=== PATIENT | female | born 1935 | race Caucasian/White ===

== ENCOUNTER 2016-09-16 14:20 | Emergency (ER) | payer OTHER ==
[2016-09-16] MEDS ORDERED: NORMAL SALINE 10 ML SYRINGE FLUSH IVP PRN (14:32)
[2016-09-16] MEDS ORDERED: Sodium Chloride 0.9% 1,000 ML PRIMARY IV ONE (14:32)
--- NOTE | 2016-09-16 14:40 | PDOC ---
General Adult HPI - General Chief Complaint: General Medical Stated Complaint: Dizzy Date Seen by Provider: 09/16/16 Time Seen by Provider: 14:30 Source: POSITIVE: Patient Exam Limitations: POSITIVE: No limitations Nurse's Notes Reviewed & Considered: Yes - History of Present Illness Initial Comment: The patient is an 81-year-old female who presents to the emergency department with dizziness. She just recently moved to the area from [place]. She states that normally in the morning she feels somewhat lightheaded especially when first standing. This morning she had similar symptoms however they have not resolved throughout the day. She states that she has continued what she describes as dizziness. When questioned further she states that she feels weak and lightheaded and has some ringing in her ears. She denies vertigo type symptoms. She denies any associated headache, chest pain, recent illness, numbness or weakness in her extremities. She denies any recent illness. Have you received a tetanus shot in the past 10 years?: Unknown - Patient Home Medications Home Medications: Home Medications Amlodipine Besylate [Norvasc] 5 mg PO DAILY 09/16/16 Escitalopram Oxalate [Lexapro] 10 mg PO DAILY 09/16/16 Lisinopril [Prinivil Tab] 10 mg PO DAILY 09/16/16 Metoprolol Succinate 25 mg PO BID 09/16/16 - Patient Allergies Allergies/Adverse Reactions: Allergies Allergy/AdvReac Type Severity Reaction Status Date / Time No Known Allergies Allergy Verified 09/16/16 14:30 Past Medical History Past Medical History Reviewed: Other (please comment) (The patient reports taking blood pressure medications as well as medications for depression and anxiety. She denies any known history of heart disease.) ROS - Limitations ROS Limitations: No Limitations Constitution: DENIES: Chills, Fever Cardiovascular: DENIES: Chest Pain, Heart Racing, Heart Palpitations, Edema Respiratory: REPORTS: Denies Resp Symptoms Neurological: REPORTS: Dizziness. DENIES: Confusion, Headache, Numbness, Fainting, Weakness Gastrointestinal: REPORTS: Denies GI Symptoms Musculoskeletal: REPORTS: Denies MS Symptoms Genitourinary: REPORTS: Denies Symptoms, Other (She does report urinating frequently). DENIES: Dysuria, Difficulty Urinating Eyes: REPORTS: Denies Symptoms ENT: REPORTS: Denies Symptoms Skin: DENIES: Rash General Adult Exam - General Appearance General Appearance: POSITIVE: Alert, Cooperative, No Acute Distress - HEENT HEENT: POSITIVE: Head Inspection Nml, Eyes Inspection Nml, Pharynx Inspect. Nml , PERRL, EOMI, Foreign Body Present - Neck Neck: POSITIVE: Normal Inspection - Respiratory Respiratory: POSITIVE: No Respiratory Distress, Breath Sounds Normal - Cardiovascular Cardiovascular: POSITIVE: Regular Rate & Rhythm, No Murmur Peripheral Pulses: Dorsalis-pedis (R): 2+, Dorsalis-pedis (L): 2+ - Abdomen Abdomen: Soft: (All Quadrants), Denies Tenderness: (All Quadrants), No Distention: (All Quadrants) - Back Back: POSITIVE: Normal Inspection - Skin Skin: POSITIVE: Normal Color, No Rash, Rash - Extremities Extremity: Normal ROM: (All Extremities), Normal Inspection: (All Extremities) - Neurological / Psychological Neurological: POSITIVE: Oriented X3, Motor Normal, Sensation Normal, Other (No focal neurologic deficit) General Adult Progress - Results Reviewed by me Lab Results Reviewed: Yes Lab Results:: Laboratory Results 09/16/16 09/16/16 09/16/16 Range/Units 14:44 14:47 16:05 WBC 6.20 (4.8-10.8) 10^3/uL RBC 4.40 (4.20-5.40) 10^6/uL Hgb 13.0 (12.0-16.0) g/dL Hct 37.8 (37.0-47.0) % MCV 85.9 (81-99) FL MCH 29.5 (27-31) PG MCHC 34.4 (33-37) g/dL RDW Std Deviation 40.4 (39-50) fL RDW Coeff of Catina 13.0 (11.5-14.5) % Plt Count 274 (140-350) 10*3/uL MPV 8.4 (7.4-12.2) FL Immature Gran % (Auto) 0.2 (0-5) % Neut % (Auto) 58.2 (50-80) % Lymph % (Auto) 30.6 (10-50) % [place] % (Auto) 9.0 (5-15) % Eos % (Auto) 1.5 (0-8) % Baso % (Auto) 0.5 (0-1) % Immature Gran # (Auto) 0.01 10*3/UL Neut # (Auto) 3.61 10*3/UL Lymph # (Auto) 1.90 10*3/uL [place] # (Auto) 0.56 (0.3-0.8) 10*3/UL Eos # (Auto) 0.09 10*3/UL Baso # (Auto) 0.03 10*3/UL WBC Morphology Comment Normal morphology (NORM) Plt Morphology Comment Normal morphology (NORM) RBC Morph Comment Normal morphology (NORM) Sodium 139 (135-145) meq/L Potassium 3.7 L (3.8-5.2) meq/L Chloride 103 (98-112) meq/L Carbon Dioxide 23 (23-33) meq/L Anion Gap 13 (5-20) BUN 29 H (7-22) mg/dL Creatinine 1.3 H (0.50-1.20) mg/dL Estimated GFR [employer] BUN/Creatinine Ratio 22.30 H (6-20) Glucose 131 H (78-110) mg/dL Calculated Osmolality 295.0 H (267-292) mOsm/kg Calcium 9.7 (8.7-10.7) mg/dL Magnesium 1.6 (1.6-2.4) mg/dL Total Bilirubin 0.6 (0.3-1.2) mg/dL AST 24 (8-39) IU/L ALT 29 (9-52) IU/L Alkaline Phosphatase 101 (38-126) IU/L Troponin I < 0.012 (< 0.040) ng/mL Total Protein 7.3 (6.1-8.0) g/dL Albumin 4.5 (3.5-4.8) g/dL Globulin 2.8 (2.50-4.10) g/dL Albumin/Globulin Ratio 1.60 (1.3-2.0) mg/g Ur Collection Type Cancelled Clean catch urine Urine Color Cancelled Yellow Urine Clarity Cancelled Clear Urine pH Cancelled 5.0 Ur Specific [place] Cancelled 1.010 Urine Protein Cancelled Negative Urine Glucose (UA) Cancelled Negative Urine Ketones Cancelled Negative Urine Occult Blood Cancelled Negative Urine Nitrate Cancelled Negative Urine Bilirubin Cancelled Negative Urine Urobilinogen Cancelled 0.2 Ur Leukocyte Esterase Cancelled Trace Urine RBC Cancelled 0 Urine WBC Cancelled 1-3 Ur Squamous Epith Cells Cancelled Few Ur Renal Epithelial Cell Cancelled Rare Urine Crystals Cancelled None Urine Bacteria Cancelled Few Urine Casts Cancelled None Urine Mucus Cancelled Rare Urine Trichomonas Cancelled None Urine Yeast Cancelled None Ur Culture Indicated? Cancelled Culture not set EKG Interpreted/Reviewed By Me:: Yes EKG Interpretation:: POSITIVE: Other (Normal sinus rhythm, left bundle branch block, no old EKGs available for comparison) - Patient's Progress MDM / ED Course: Shortly after arrival an IV was established and she did receive 1 L bolus of normal saline. She was not orthostatic on check. Her blood work is essentially unremarkable except for a slightly elevated BUN/creatinine. We do not have baseline lab work on her. Her EKG shows a left bundle branch block and we don't have any old EKGs available for comparison. Her troponin is normal. At this point the etiology of her dizziness is unclear however may be secondary to some mild dehydration in combination with taking her blood pressure medications anxiety from her recent move. She is advised to rest and push fluids. She will return to the emergency room if any worsening or change in symptoms. She has an appointment with Dr. Yoon to establish primary care tomorrow. - Consult Counseled: POSITIVE: Patient, Family, RE: Lab Results, RE: DX, RE: Need for F/U Patient Care Time - Estimated PCT Patient Care Time (In Minutes): 35 Vital Signs - Recent Vital Signs Vital Signs: Vital Signs (Last 8 hours) Temp Pulse Pulse Pulse Pulse Resp BP 09/16/16 14:34 85 80 88 09/16/16 14:22 98.5 F 90 18 152/71 BP BP BP Pulse Ox 09/16/16 14:34 143/61 142/76 143/73 09/16/16 14:22 95 - VS Reviewed Vital Signs Reviewed: Yes Discharge Clinical Impression: Dehydration, Dizziness Condition: Stable Patient Instructions Given at Discharge: Dehydration (ED), Dizziness (ED) Additional Instructions: The blood work did not reveal any sign of infection or heart attack. The dizziness that you are experiencing is possibly related to some component of dehydration which is reflected in your blood work combined with your blood pressure medication and some component of anxiety. Rest and push fluids. Return to the emergency room if any worsening or change in symptoms. Keep your appointment with Dr. Yoon tomorrow. Follow Up With: ROBBIE YOON [Primary Care Provider] -
--- NOTE | 2016-09-16 14:45 | EKG ---
[address] [address] Measurements Intervals [place] Rate: 78 P: 33 AK: 172 QRS: -6 QRSD: 138 T: 100 QT: 398 QTc: 431 Interpretive Statements SINUS RHYTHM WITH OCCASIONAL SUPRAVENTRICULAR PREMATURE COMPLEXES LEFT BUNDLE BRANCH BLOCK No previous ECG available for comparison Electronically Signed On 09-16-16 15:36:48 MST by Jamie Bustamante [email or web address]
[2016-09-16 14:48] LABS: BASOPHILS # (AUTO) 0.03 10*3/UL; BASOPHILS % (AUTO) 0.5 % (0-1); EOSINOPHILS % (AUTO) 1.5 % (0-8); HEMATOCRIT 37.8 % (37.0-47.0); IMM GRAN % (AUTO) 0.2 % (0-5); IMM GRAN# (AUTO) 0.01 10*3/UL; LYMPHOCYTES % (AUTO) 30.6 % (10-50); MEAN CORPUSCULAR HEMOGLOBIN 29.5 PG (27-31); MEAN CORPUSCULAR HGB CONC 34.4 g/dL (33-37); MEAN PLATELET VOLUME 8.4 FL (7.4-12.2); MONOCYTES # (AUTO) 0.56 10*3/UL (0.3-0.8); NEUTROPHILS # (AUTO) 3.61 10*3/UL; NEUTROPHILS % (AUTO) 58.2 % (50-80)
[2016-09-16 14:49] LABS: PLATELET MORPHOLOGY COMMENT NORMAL MORPHOLOGY (NORM)
[2016-09-16 14:55] LABS: ASPARTATE AMINO TRANSFERASE 24 IU/L (8-39); BILIRUBIN,TOTAL 0.6 mg/dL (0.3-1.2); BLOOD UREA NITROGEN 29 mg/dL (7-22); CALCIUM 9.7 mg/dL (8.7-10.7); CHLORIDE 103 meq/L (98-112); CREATININE 1.3 mg/dL (0.50-1.20); GLUCOSE 131 mg/dL (78-110); POTASSIUM 3.7 meq/L (3.8-5.2); SODIUM 139 meq/L (135-145); TOTAL PROTEIN 7.3 g/dL (6.1-8.0)
[2016-09-16 16:01] VITALS: RESP 18; TEMP 98.5
[2016-09-16 16:15] LABS: BILIRUBIN,URINE NEGATIVE (NEG); CLARITY,URINE CLEAR (CLEAR); GLUCOSE, URINE (UA) NEGATIVE (NEG); LEUKOCYTE ESTERASE ,URINE TRACE (NEG); NITRATE,URINE NEGATIVE (NEG); OCCULT BLOOD,URINE NEGATIVE (NEG); PROTEIN,URINE NEGATIVE (NEG); UROBILINOGEN,URINE 0.2 EU/dL (0.2)
[2016-09-16 16:16] LABS: URINE SAMPLE TYPE CLEAN CATCH URINE
[2016-09-16 16:18] LABS: BACTERIA,URINE FEW; RBC,URINE 0 /hpf; RENAL EPITHELIAL CELLS,URINE RARE; SQUAMOUS EPITHELIAL CELL,UR FEW
== END 2016-09-16 17:05 | disposition home or self-care (01) ==
LOC: ER 14:20
DX: E86.0 Dehydration (principal); R53.1 Weakness; R42 Dizziness and giddiness; R35.0 Frequency of micturition; I10 Essential (primary) hypertension
CPT/HCPCS: 80053; 81001; 81003; 82948; 83735; 84484; 85025; 93005; 93010; 96360; 96361; 99283

== ENCOUNTER → 2016-09-17 | Outpatient (CLI) | payer OTHER | LOC: MMPC 11:11 | PROVIDERS: ATTEND Internal Medicine | DX: I10 Essential (primary) hypertension (principal); E86.0 Dehydration; F41.8 Other specified anxiety disorders; N18.2 Chronic kidney disease, stage 2 (mild); J44.9 Chronic obstructive pulmonary disease, unspecified | CPT/HCPCS: 99214; G0463 ==

== ENCOUNTER 2016-09-19 15:16 | Emergency (ER) | payer OTHER ==
--- NOTE | 2016-09-19 15:39 | PDOC ---
Gen Adult / Medical Screen HPI - General Chief Complaint: General Medical Stated Complaint: I can't stop crying Date Seen by Provider: 09/19/16 Time Seen by Provider: 15:39 Source: POSITIVE: Patient, Other (Patient's daughter and son-in-law) Exam Limitations: POSITIVE: Clinical condition (Patient's confusion and underlying dementia) Nurse's Notes Reviewed & Considered: Yes - Indicators Temperature Between 95 and 101 Degrees: Yes Respirations Between 12 and 20: Yes Blood Pressure Between 100-165 (sys) and 60-100 (wade): Yes Pulse Range Between 60-105 (100 for age > 60 years): Yes Severe Pain (Greater than 5/10 Reported): No Chest or Abdominal Pain: No Inability to Walk: No Pt Reports Active High Risk Cond. (TB/Hepatitis/HIV/Chemo): No Abnormal Mental Status: Yes (patient is alert and oriented to person, unsure of whether she is in [facility]) - History of Present Illness Initial Comments: Patient comes in tearful. She is brought in by her family because of crying stating she has been unable stop crying. She was seen here in the emergency department last week for the same. Patient is confused unsure if she is in [place] or [place]. She is alert only to person not place or time. She denies any headache, sore throat, chest pain, no shortness of breath, no abdominal pain , no nausea vomiting or diarrhea, she has increased frequency of urination but no dysuria. Similar Symptoms Previously: Yes Recent Care Received: REPORTS: Recently Seen Any Prior Injuries Related to Current Complaint?: No - Patient Home Medications Home Medications: Home Medications Escitalopram Oxalate 0.5 tab-cap PO DAILY #30 tab-cap 09/17/16 Hydralazine HCl 1 tab-cap PO BID #60 tab-cap 09/17/16 Metoprolol Succinate 1 tab PO QHS #30 tab 09/17/16 - Patient Allergies Allergies/Adverse Reactions: Allergies Allergy/AdvReac Type Severity Reaction Status Date / Time No Known Allergies Allergy Verified 09/19/16 15:19 Past Medical History - heen HEENT History: Denies History Cardiovascular History: Hypertension, Hyperlipidemia Respiratory History: Denies History Gastrointestinal History: Denies History Genitourinary History: Denies History Endocrine History: Denies History Musculoskeletal History: Denies History Prosthesis or Implant: No Neurological History: Denies History Blood Disorders: Denies History Psychiatric History: Depression, Anxiety Disorders Cancer History: Denies History History of MDRO: No Alcohol Use: None Substance Use Type: None Previous Surgical History: No Anesthesia Reactions: No ROS - Limitations ROS Limitations: Mental Impairment Constitution: REPORTS: Denies Symptoms Cardiovascular: REPORTS: Denies Cardiac Symptoms Respiratory: REPORTS: Denies Resp Symptoms Neurological: REPORTS: Denies Neuro Symptoms Gastrointestinal: REPORTS: Denies GI Symptoms Endocrine: REPORTS: Denies Symptoms Musculoskeletal: REPORTS: Denies MS Symptoms Genitourinary: REPORTS: Denies Symptoms Eyes: REPORTS: Denies Symptoms ENT: REPORTS: Denies Symptoms Skin: REPORTS: Denies Skin Symptoms Lympathic: REPORTS: Denies Lympathic Symptoms Immunologic: POSITIVE: Denies Symptoms Psychiatric: POSITIVE: Confusion, Other (Tearful, can't stop crying.) Gen Adult/Medical Screen Exam - General Appearance General Appearance: POSITIVE: Cooperative, No Evidence of Trauma, Anxious, Mild Distress - HEENT HEENT: POSITIVE: Head Inspection Nml, Eyes Inspection Nml, Ears Inspection Nml, Nose Inspection Nml, Oral/Dental Inspect. Nml, Pharynx Inspect. Nml, PERRL, EOMI - Pupils Pupil Size: 4 mm: Bilateral - Neck Neck: POSITIVE: Normal Inspection, Thyroid Normal - Respiratory Respiratory: POSITIVE: No Respiratory Distress, Breath Sounds Normal - Cardiovascular Cardiovascular: POSITIVE: Regular Rate & Rhythm, No Murmur, No Gallop, PMI Normal - Abdomen Abdomen: Soft: (All Quadrants), Normal Bowel Sounds: (All Quadrants), Denies Tenderness: (All Quadrants) - Back Back: POSITIVE: Normal Inspection - Neurological / Psychological Mental Status: POSITIVE: Depressed Mood, Tearful Orientation: POSITIVE: Disoriented to Place, Disoriented to Time - Skin Skin: POSITIVE: Normal Color, Warm, Dry, No Rash - Extremities Extremity: Non-Tender: (All Extremities), Normal ROM: (All Extremities), Normal Inspection: (All Extremities) Procedures - Laceration/Wound Repair Did patient have a laceration repair: No Gen Adlt/Medical Scrn Progress - Results Reviewed by me Xrays/CTs/US Reviewed by me: Yes Discussed with Radiologist: Yes Lab Results Reviewed: Yes Lab Results:: Laboratory Results 09/19/16 09/19/16 Range/Units 15:59 16:10 WBC 6.77 (4.8-10.8) 10^3/uL RBC 3.88 L (4.20-5.40) 10^6/uL Hgb 11.5 L (12.0-16.0) g/dL Hct 33.5 L (37.0-47.0) % MCV 86.3 (81-99) FL MCH 29.6 (27-31) PG MCHC 34.3 (33-37) g/dL RDW Std Deviation 41.1 (39-50) fL RDW Coeff of Catina 13.1 (11.5-14.5) % Plt Count 279 (140-350) 10*3/uL MPV 8.6 (7.4-12.2) FL Immature Gran % (Auto) 0.1 (0-5) % Neut % (Auto) 61.3 (50-80) % Lymph % (Auto) 25.3 (10-50) % [place] % (Auto) 10.8 (5-15) % Eos % (Auto) 2.1 (0-8) % Baso % (Auto) 0.4 (0-1) % Immature Gran # (Auto) 0.01 10*3/UL Neut # (Auto) 4.15 10*3/UL Lymph # (Auto) 1.71 10*3/uL [place] # (Auto) 0.73 (0.3-0.8) 10*3/UL Eos # (Auto) 0.14 10*3/UL Baso # (Auto) 0.03 10*3/UL WBC Morphology Comment Normal morphology (NORM) Plt Morphology Comment Normal morphology (NORM) RBC Morph Comment Normal morphology (NORM) Sodium 139 (135-145) meq/L Potassium 3.5 L (3.8-5.2) meq/L Chloride 104 (98-112) meq/L Carbon Dioxide 22 L (23-33) meq/L Anion Gap 13 (5-20) BUN 27 H (7-22) mg/dL Creatinine 1.4 H (0.50-1.20) mg/dL Estimated GFR [employer] Tender BUN/Creatinine Ratio 19.28 (6-20) Glucose 117 H (78-110) mg/dL Calculated Osmolality 293.0 H (267-292) mOsm/kg Calcium 9.1 (8.7-10.7) mg/dL Magnesium 1.5 L (1.6-2.4) mg/dL Total Bilirubin 0.5 (0.3-1.2) mg/dL AST 25 (8-39) IU/L ALT 21 (9-52) IU/L Alkaline Phosphatase 87 (38-126) IU/L Total Protein 6.7 (6.1-8.0) g/dL Albumin 4.1 (3.5-4.8) g/dL Globulin 2.6 (2.50-4.10) g/dL Albumin/Globulin Ratio 1.50 (1.3-2.0) mg/g TSH 2.50 (0.2700-4.2000) uIU/mL Free T4 1.77 H (0.93-1.71) ng/dL Ur Collection Type Clean catch urine Urine Color Yellow Urine Clarity Clear (CLEAR) Urine pH 5.0 (5.0-8.5) Ur Specific [place] 1.010 (1.005-1.030) U Specif Grav (Refrac) 1.010 Urine Protein Negative (NEG) mg/dl Urine Glucose (UA) Negative (NEG) mg/dL Urine Ketones Trace (NEG) Urine Occult Blood Negative (NEG) Urine Nitrate Negative (NEG) Urine Bilirubin Negative (NEG) Urine Urobilinogen 0.2 (0.2) EU/dL Ur Leukocyte Esterase Small (NEG) Urine RBC None (NONE) /hpf Urine WBC 5-8 (NONE) Ur Squamous Epith Cells Moderate (NONE) Ur Renal Epithelial Cell None (NONE) Urine Crystals None Urine Bacteria Rare (NONE) Urine Casts None (NONE) Urine Mucus Moderate (NONE) Urine Trichomonas None (NONE) Urine Yeast None (NONE) Ur Culture Indicated? Culture not set Urine Opiates Screen Pending Ur Buprenorphine Pending Ur Oxycodone Screen Pending Urine Methadone Screen Pending Ur Propoxyphene Screen Pending Barbiturate Screen Pending U Tricyclic Antidepress Pending Phencyclidine Screen Pending Amphetamines Screen Pending U Methamphetamines Scrn Pending Benzodiazepines Screen Pending Cocaine Screen Pending U Marijuana (THC) Screen Pending Serum Alcohol 10 (0-10) mg/dL EKG Interpretation:: POSITIVE: Normal Sinus Rhythm - Patient's Progress Pain Medication Addressed: POSITIVE: Not Applicable Re-Examine Time: 18:19 Status: POSITIVE: Improved MDM / ED Course: Patient was examined, IV started and blood drawn and sent to the lab for studies , CT of her head was obtained, EKG was obtained. Findings: EKG showed normal sinus rhythm per my interpretation, CT scan of her head showed no acute intracranial abnormalities. CBC shows a slight anemia. Comp metabolic panel shows creatinine elevated at 1.4, potassium slightly low at 3.5. Magnesium slightly low at 1.5. Thyroid panel showed TSH normal but T4 elevated at 1.77. Urine Analysis reveals a contaminated pattern, urine drug screen negative. Blood alcohol register 10. Assessment: Dementia with depression. Plan: Discharge home. Follow-up with primary care physician. Consider placement for longterm. 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
[2016-09-19] MEDS ORDERED: LORazepam 2 MG/1 ML VIAL IVP ONE (15:59)
[2016-09-19] MEDS ORDERED: Sodium Chloride 0.9% 1,000 ML PRIMARY IV ONE (15:59)
[2016-09-19 16:30] LABS: BASOPHILS # (AUTO) 0.03 10*3/UL; BASOPHILS % (AUTO) 0.4 % (0-1); EOSINOPHILS % (AUTO) 2.1 % (0-8); HEMATOCRIT 33.5 % (37.0-47.0); HEMOGLOBIN 11.5 g/dL (12.0-16.0); IMM GRAN % (AUTO) 0.1 % (0-5); IMM GRAN# (AUTO) 0.01 10*3/UL; LYMPHOCYTES # (AUTO) 1.71 10*3/uL; LYMPHOCYTES % (AUTO) 25.3 % (10-50); MEAN CORPUSCULAR HEMOGLOBIN 29.6 PG (27-31); MEAN CORPUSCULAR HGB CONC 34.3 g/dL (33-37); MEAN PLATELET VOLUME 8.6 FL (7.4-12.2); MONOCYTES # (AUTO) 0.73 10*3/UL (0.3-0.8); MONOCYTES % (AUTO) 10.8 % (5-15); NEUTROPHILS # (AUTO) 4.15 10*3/UL; NEUTROPHILS % (AUTO) 61.3 % (50-80); RDW COEFFICIENT OF VARIATION 13.1 % (11.5-14.5); RED BLOOD COUNT 3.88 10^6/uL (4.20-5.40); WHITE BLOOD COUNT 6.77 10^3/uL (4.8-10.8)
[2016-09-19 16:31] LABS: PLATELET MORPHOLOGY COMMENT NORMAL MORPHOLOGY (NORM)
[2016-09-19 16:36] VITALS: RESP 12; TEMP 97.2
[2016-09-19 16:43] LABS: ASPARTATE AMINO TRANSFERASE 25 IU/L (8-39); BILIRUBIN,TOTAL 0.5 mg/dL (0.3-1.2); BLOOD UREA NITROGEN 27 mg/dL (7-22); BUN/CREATININE RATIO 19.28 (6-20); CALCIUM 9.1 mg/dL (8.7-10.7); CHLORIDE 104 meq/L (98-112); CREATININE 1.4 mg/dL (0.50-1.20); GLUCOSE 117 mg/dL (78-110); MAGNESIUM 1.5 mg/dL (1.6-2.4); POTASSIUM 3.5 meq/L (3.8-5.2); SERUM ALCOHOL 10 mg/dL (0-10); SODIUM 139 meq/L (135-145); TOTAL PROTEIN 6.7 g/dL (6.1-8.0)
[2016-09-19 17:00] LABS: FREE T4 (FREE THYROXINE) 1.77 ng/dL (0.93-1.71)
[2016-09-19 17:50] LABS: BILIRUBIN,URINE NEGATIVE (NEG); CLARITY,URINE CLEAR (CLEAR); GLUCOSE, URINE (UA) NEGATIVE (NEG); LEUKOCYTE ESTERASE ,URINE SMALL (NEG); NITRATE,URINE NEGATIVE (NEG); OCCULT BLOOD,URINE NEGATIVE (NEG); PROTEIN,URINE NEGATIVE (NEG); UROBILINOGEN,URINE 0.2 EU/dL (0.2)
[2016-09-19 18:03] LABS: BACTERIA,URINE RARE; SQUAMOUS EPITHELIAL CELL,UR MODERATE; URINE SAMPLE TYPE CLEAN CATCH URINE
--- NOTE | 2016-09-19 18:55 | DI ---
CT HEAD SCAN WITHOUT IV CONTRAST, 09/19/2016 3:59 PM : Clinical History: Confusion. Previous Exam: None at this facility. Scans are obtained from the foramen magnum to the vertex without IV contrast. The fourth ventricle is of normal size, shape, position and contour. The third and lateral ventricles are mildly dilated but are otherwise normal. There is no evidence of an acute hemorrhagic or bland i nfarct. There is moderate cerebellar and moderately severe cerebral atrophy. There are no extracerebr al mantles or shift of the midline structures. Bone window evaluation is normal. The paranasal sinuse s are normal. READIN. There is no evidence of an acute hemorrhagic or bland infarct. 2. Moderate cerebellar and moderately severe cerebral atrophy.
[2016-09-22 21:29] LABS: CANNABINOID SCREEN,URINE NEGATIVE (NEG); COCAINE SCREEN NEGATIVE (NEG); METHAMPHETAMINES SCREEN,URINE NEGATIVE (NEG)
== END 2016-09-19 18:35 | disposition home or self-care (01) ==
LOC: ER 15:16
DX: F32.89 Other specified depressive episodes (principal); F03.90 Unspecified dementia, unspecified severity, without behavioral disturbance, psychotic disturbance, mood disturbance, and anxiety; G31.9 Degenerative disease of nervous system, unspecified
CPT/HCPCS: 70450; 80053; 80305; 80320; 81001; 81003; 83735; 84439; 84443; 85025; 96374; 99283; J2060; J7030

== ENCOUNTER 2016-09-20 12:54 | Emergency (ER) | payer OTHER ==
[2016-09-20 13:12] VITALS: RESP 12; TEMP 96.8
[2016-09-20] MEDS ORDERED: NORMAL SALINE 10 ML SYRINGE FLUSH IVP PRN (13:14)
[2016-09-20] MEDS ORDERED: Sodium Chloride 0.9% 1,000 ML PRIMARY IV ONE (13:14)
[2016-09-20] MEDS ORDERED: ONDANSETRON 4 MG/2 ML VIAL IVP ONE (13:16)
--- NOTE | 2016-09-20 13:26 | EKG ---
[address] [place] [address] Measurements Intervals [place] Rate: 59 P: 36 [place]: 169 QRS: -13 QRSD: 132 T: 91 QT: 445 QTc: 444 Interpretive Statements SINUS BRADYCARDIA LEFT BUNDLE BRANCH BLOCK Compared to ECG 09/16/2016 14:42:36 Sinus rhythm no longer present Electronically Signed On 09-20-16 15:21:42 MST by Jamie Bustamante [id number]
[2016-09-20 13:40] LABS: BASOPHILS # (AUTO) 0.04 10*3/UL; BASOPHILS % (AUTO) 0.6 % (0-1); EOSINOPHILS % (AUTO) 1.4 % (0-8); HEMATOCRIT 34.5 % (37.0-47.0); HEMOGLOBIN 11.9 g/dL (12.0-16.0); IMM GRAN % (AUTO) 0.2 % (0-5); IMM GRAN# (AUTO) 0.01 10*3/UL; LYMPHOCYTES # (AUTO) 1.65 10*3/uL; LYMPHOCYTES % (AUTO) 25.5 % (10-50); MEAN CORPUSCULAR HEMOGLOBIN 29.8 PG (27-31); MEAN CORPUSCULAR HGB CONC 34.5 g/dL (33-37); MEAN PLATELET VOLUME 8.4 FL (7.4-12.2); MONOCYTES % (AUTO) 10.8 % (5-15); NEUTROPHILS # (AUTO) 3.99 10*3/UL; NEUTROPHILS % (AUTO) 61.5 % (50-80); RDW COEFFICIENT OF VARIATION 13.2 % (11.5-14.5); RED BLOOD COUNT 3.99 10^6/uL (4.20-5.40); WHITE BLOOD COUNT 6.48 10^3/uL (4.8-10.8)
[2016-09-20 13:43] LABS: PLATELET MORPHOLOGY COMMENT NORMAL MORPHOLOGY (NORM)
[2016-09-20 13:55] LABS: ASPARTATE AMINO TRANSFERASE 20 IU/L (8-39); BILIRUBIN,TOTAL 0.5 mg/dL (0.3-1.2); BLOOD UREA NITROGEN 25 mg/dL (7-22); BUN/CREATININE RATIO 19.23 (6-20); CALCIUM 9.3 mg/dL (8.7-10.7); CHLORIDE 104 meq/L (98-112); CREATININE 1.3 mg/dL (0.50-1.20); GLUCOSE 111 mg/dL (78-110); POTASSIUM 3.7 meq/L (3.8-5.2); SODIUM 138 meq/L (135-145); TOTAL PROTEIN 6.4 g/dL (6.1-8.0)
--- NOTE | 2016-09-21 06:08 | PDOC ---
General Adult HPI - General Chief Complaint: Syncope / Near-Syncope Stated Complaint: dizzy, nauseated Date Seen by Provider: 09/20/16 Time Seen by Provider: 13:05 Source: POSITIVE: Patient, Old records Exam Limitations: POSITIVE: No limitations Nurse's Notes Reviewed & Considered: Yes - History of Present Illness Initial Comment: The patient is an 81-year-old female. She states that for the past day, approximately, she has felt nauseated and "weak". No head chest or abdominal pain. No syncope or near-syncope. No vomiting, diarrhea, melena, hematochezia , hematemesis, dysuria or hematuria. No focal neurologic symptoms. No sensory or motor symptoms. Have you received a tetanus shot in the past 10 years?: Unknown Body Location Affected: REPORTS: Other (As above) Timing: REPORTS: Intermittent Duration: <1 week Severity: Mild Quality: REPORTS: Other (Patient denies any pain anywhere) Context: REPORTS: None Modifying Factors: improves with: Nothing Similar Symptoms Previously: Yes Recent Care Received: REPORTS: Recently Seen, Treated by MD (Seen in ER for similar symptoms recently.) Any Prior Injuries Related to Current Complaint?: No - Patient Home Medications Home Medications: Home Medications Escitalopram Oxalate 0.5 tab-cap PO DAILY #30 tab-cap 09/17/16 Hydralazine HCl 1 tab-cap PO BID #60 tab-cap 09/17/16 Metoprolol Succinate 1 tab PO QHS #30 tab 09/17/16 - Patient Allergies Allergies/Adverse Reactions: Allergies Allergy/AdvReac Type Severity Reaction Status Date / Time No Known Allergies Allergy Verified 09/19/16 15:19 Past Medical History - heen HEENT History: Denies History Cardiovascular History: Hypertension, Hyperlipidemia Respiratory History: Denies History Gastrointestinal History: Denies History Genitourinary History: Denies History Endocrine History: Denies History Musculoskeletal History: Denies History Prosthesis or Implant: No Neurological History: Denies History Blood Disorders: Denies History Psychiatric History: Depression, Anxiety Disorders History of Sexually Transmitted Diseases: No Cancer History: Denies History In Past Year Been Physically Harmed or Verbally Threatened: No History of MDRO: No History of Other Communicable Diseases: No Tobacco Use: Former Smoker Alcohol Use: None Substance Use Type: None Previous Surgical History: No Anesthesia Reactions: No Past Medical History Reviewed: Reviewed - No Changes ROS - Limitations ROS Limitations: No Limitations Constitution: REPORTS: Weakness Cardiovascular: REPORTS: Denies Cardiac Symptoms Respiratory: REPORTS: Denies Resp Symptoms Neurological: REPORTS: Denies Neuro Symptoms Gastrointestinal: REPORTS: Denies GI Symptoms Endocrine: REPORTS: Denies Symptoms Musculoskeletal: REPORTS: Denies MS Symptoms Genitourinary: REPORTS: Denies Symptoms Eyes: REPORTS: Denies Symptoms ENT: REPORTS: Denies Symptoms Skin: REPORTS: Denies Skin Symptoms Lympathic: REPORTS: Denies Lympathic Symptoms Immunologic: POSITIVE: Denies Symptoms Psychiatric: POSITIVE: Anxiety General Adult Exam - General Appearance General Appearance: POSITIVE: Alert - HEENT HEENT: POSITIVE: Head Inspection Nml, Eyes Inspection Nml, Ears Inspection Nml, Nose Inspection Nml, Oral/Dental Inspect. Nml, Pharynx Inspect. Nml, PERRL, EOMI - Pupils Pupil Size: 3 mm: Bilateral (PERRLA) - Neck Neck: POSITIVE: Normal Inspection, Thyroid Normal - Respiratory Respiratory: POSITIVE: No Respiratory Distress, Breath Sounds Normal, Chest Non- Tender - Cardiovascular Cardiovascular: POSITIVE: Regular Rate & Rhythm, No Murmur, No Gallop, PMI Normal Peripheral Pulses: Radial (R): 2+, Radial (L): 2+ - Abdomen Abdomen: Soft: (All Quadrants), Normal Bowel Sounds: (All Quadrants), Denies Tenderness: (All Quadrants), No Splenomegaly: (All Quadrants), No Hepatomegaly: (All Quadrants), No Guarding: (All Quadrants), No Rebound: (All Quadrants), No Palpable Pulse: (All Quadrants), No Palpabale Mass: (All Quadrants), No Distention: (All Quadrants), No Rigidity: (All Quadrants) - Back Back: POSITIVE: Normal Inspection - Skin Skin: POSITIVE: Normal Color, Warm, Dry, No Rash - Extremities Extremity: Non-Tender: (All Extremities), Normal ROM: (All Extremities), Normal Inspection: (All Extremities) - Neurological / Psychological Neurological: 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: 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, 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, Motor Normal, Sensation Normal, 5, 6 General Adult Progress - Results Reviewed by me Lab Results Reviewed: Yes (normal) Lab Results:: Laboratory Results 09/20/16 Range/Units 13:30 WBC 6.48 (4.8-10.8) 10^3/uL RBC 3.99 L (4.20-5.40) 10^6/uL Hgb 11.9 L (12.0-16.0) g/dL Hct 34.5 L (37.0-47.0) % MCV 86.5 (81-99) FL MCH 29.8 (27-31) PG MCHC 34.5 (33-37) g/dL RDW Std Deviation 40.9 (39-50) fL RDW Coeff of Catina 13.2 (11.5-14.5) % Plt Count 286 (140-350) 10*3/uL MPV 8.4 (7.4-12.2) FL Immature Gran % (Auto) 0.2 (0-5) % Neut % (Auto) 61.5 (50-80) % Lymph % (Auto) 25.5 (10-50) % [place] % (Auto) 10.8 (5-15) % Eos % (Auto) 1.4 (0-8) % Baso % (Auto) 0.6 (0-1) % Immature Gran # (Auto) 0.01 10*3/UL Neut # (Auto) 3.99 10*3/UL Lymph # (Auto) 1.65 10*3/uL [place] # (Auto) 0.70 (0.3-0.8) 10*3/UL Eos # (Auto) 0.09 10*3/UL Baso # (Auto) 0.04 10*3/UL WBC Morphology Comment Normal morphology (NORM) Plt Morphology Comment Normal morphology (NORM) RBC Morph Comment Normal morphology (NORM) Sodium 138 (135-145) meq/L Potassium 3.7 L (3.8-5.2) meq/L Chloride 104 (98-112) meq/L Carbon Dioxide 22 L (23-33) meq/L Anion Gap 12 (5-20) BUN 25 H (7-22) mg/dL Creatinine 1.3 H (0.50-1.20) mg/dL 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 NEGATIVE: Normal Intervals (Left bundle-branch block), Normal [place] (Left bundle- branch block), Normal QRS (Left bundle-branch block), Normal ST/T (Left bundle- branch block) - Patient's Progress Pain Medication Addressed: POSITIVE: Not Applicable School/Work Release Addressed: POSITIVE: Not Applicable Re-Examine Time: 14:25 Re-Examine Comment: Patient given a liter of normal saline IV and 4 mg of Zofran IV. Nausea resolved on discharge and patient states she feels better and is asymptomatic. Status: POSITIVE: Improved, Re-Examined Antibiotics Given: No - Consult Counseled: POSITIVE: Patient, Family (Daughter) Patient Care Time - Estimated PCT Patient Care Time (In Minutes): 45 Vital Signs - VS Reviewed Vital Signs Reviewed: Yes Discharge Clinical Impression: Nausea, Fatigue Discharge Disposition: Discharged to Home Condition: Fair Patient Instructions Given at Discharge: Weakness (ED), Fatigue (ED) Additional Instructions: I am glad you are feeling better. I see no evidence of any serious problems ongoing. You might be in the early stages of dementia. Please follow-up with your primary care provider. Return here as necessary. Follow Up With: ROBBIE YOON [Primary Care Provider] - (Instructions as above. Follow-up with your primary care provider. Return if we may be of any further service.)
== END 2016-09-20 14:55 | disposition home or self-care (01) ==
LOC: ER 12:54
DX: R11.0 Nausea (principal); R53.1 Weakness; R53.83 Other fatigue
CPT/HCPCS: 80053; 84443; 84484; 85025; 93005; 93010; 96361; 96374; 99283; J2405; J7030

== ENCOUNTER 2016-09-29 23:14 | Inpatient (IN) | payer OTHER ==
[2016-09-29] MEDS ORDERED: Sodium Chloride 0.9% 1,000 ML PRIMARY IV ONE (23:24)
[2016-09-29] MEDS ORDERED: NORMAL SALINE 10 ML SYRINGE FLUSH IVP PRN (23:24)
[2016-09-29 23:31] LABS: BASOPHILS # (AUTO) 0.03 10*3/UL; BASOPHILS % (AUTO) 0.4 % (0-1); EOSINOPHILS # (AUTO) 0.15 10*3/UL; EOSINOPHILS % (AUTO) 1.8 % (0-8); HEMATOCRIT 38.3 % (37.0-47.0); HEMOGLOBIN 13.1 g/dL (12.0-16.0); LYMPHOCYTES # (AUTO) 3.02 10*3/uL; MEAN CORPUSCULAR HEMOGLOBIN 29.6 PG (27-31); MEAN CORPUSCULAR HGB CONC 34.2 g/dL (33-37); MEAN CORPUSCULAR VOLUME 86.5 FL (81-99); MEAN PLATELET VOLUME 8.7 FL (7.4-12.2); MONOCYTES # (AUTO) 0.84 10*3/UL (0.3-0.8); MONOCYTES % (AUTO) 10.3 % (5-15); NEUTROPHILS # (AUTO) 4.14 10*3/UL; NEUTROPHILS % (AUTO) 50.5 % (50-80); RED BLOOD COUNT 4.43 10^6/uL (4.20-5.40)
--- NOTE | 2016-09-29 23:32 | PDOC ---
Abdomen/Flank HPI - General Chief Complaint: Abdomen Pain Stated Complaint: ABD PAIN Date Seen by Provider: 09/29/16 Time Seen by Provider: 11:20 Source: POSITIVE: Patient Exam Limitations: POSITIVE: No limitations Nurse's Notes Reviewed & Considered: Yes - History of Present Illness Initial Comments: The patient is an 81-year-old female who presents to the emergency department with acute onset of abdominal pain. She states that she was getting ready for bed and laid down when she had onset of severe abdominal pain. She states that she felt like her intestines were knotted up. She subsequently got up and tried to go to the bathroom. She was able to urinate however did not feel any better. She had a difficult time getting off the toilet and eventually was able to wake up her family. They subsequently called EMS to bring the patient here to the emergency room. She did receive fentanyl and Zofran in route per EMS and her pain has subsided somewhat on arrival here. She states that her pain is worse with movement. She denies any increase shortness of breath. She did have some associated nausea. She states that she has not had similar pain in the past. She denies recent falls or illness. She denies urinary symptoms. She has been evaluated several times here in the emergency room over the past couple of weeks with vague complaints of dizziness and dehydration/ lightheadedness. She also established care with Dr. Dunbar. A couple of her blood pressure medications were discontinued. Her family does report over the past couple of days her blood pressure has been increasing. On arrival here in the emergency room her blood pressure was elevated at 200/115. She denies any recent falls. - Patient Home Medications Home Medications: Home Medications Escitalopram Oxalate 0.5 tab-cap PO DAILY #30 tab-cap 09/17/16 Hydralazine HCl 1 tab-cap PO BID #60 tab-cap 09/17/16 Metoprolol Succinate 1 tab PO QHS #30 tab 09/17/16 Lorazepam [Ativan] 0.5 tab PO QAM #3 tab 09/22/16 - Patient Allergies Allergies/Adverse Reactions: Allergies Allergy/AdvReac Type Severity Reaction Status Date / Time No Known Allergies Allergy Verified 09/29/16 23:29 Past Medical History - heen HEENT History: Denies History Cardiovascular History: Hypertension, Hyperlipidemia Respiratory History: Denies History Gastrointestinal History: Denies History Genitourinary History: Denies History Endocrine History: Denies History Musculoskeletal History: Denies History Prosthesis or Implant: No Neurological History: Denies History Blood Disorders: Denies History Psychiatric History: Depression, Anxiety Disorders History of Sexually Transmitted Diseases: No Cancer History: Denies History History of MDRO: No History of Other Communicable Diseases: No Alcohol Use: None Substance Use Type: None Previous Surgical History: No Anesthesia Reactions: No Past Medical History Reviewed: Reviewed - No Changes ROS - Limitations ROS Limitations: No Limitations Constitution: DENIES: Chills, Fever Cardiovascular: DENIES: Chest Pain, Heart Palpitations, Edema Respiratory: REPORTS: Denies Resp Symptoms. DENIES: Shortness Of Breath Neurological: REPORTS: Denies Neuro Symptoms Gastrointestinal: REPORTS: Abdominal Pain, Nausea. DENIES: Vomitting, Diarrhea Musculoskeletal: REPORTS: Denies MS Symptoms Genitourinary: REPORTS: Denies Symptoms Eyes: REPORTS: Denies Symptoms ENT: REPORTS: Denies Symptoms Skin: DENIES: Rash Abdominal/Flank Pain PE - General Appearance General Appearance: POSITIVE: Alert, Cooperative, No Acute Distress, Anxious - HEENT HEENT: POSITIVE: Head Inspection Nml, Eyes Inspection Nml, Ears Inspection Nml, Pharynx Inspect. Nml - Neck Neck: POSITIVE: Normal Inspection - Respiratory Respiratory: POSITIVE: No Respiratory Distress, Breath Sounds Normal - Cardiovascular Cardiovascular: POSITIVE: Regular Rate and Rhythm, Heart Sounds Normal - Abdomen Abdomen: Soft: (All Quadrants), Normal Bowel Sounds: (All Quadrants), No Distention: (All Quadrants) Additional Abdominal Details: Her abdomen is soft however she is tender in the epigastric and right upper quadrants without guarding or rebound tenderness. - Back Back: NEGATIVE: CVA Tenderness (R), CVA Tenderness (L) - Skin Skin: POSITIVE: Intact, No Rash - Extremities Extremity: Normal ROM: (All Extremities), Normal Inspection: (All Extremities) - Neurological Neurological: POSITIVE: Oriented X3, Motor Normal, Sensation Normal Abdomen Progress - Results Reviewed by me Xrays/CTs/US Reviewed by me: Yes Discussed with Radiologist: Yes Radiology Findings: CT scan of the abdomen and pelvis done without IV contrast secondary to chronic renal failure shows evidence of cholelithiasis with concern about thickened gallbladder wall consistent with cholecystitis per radiologist. She also had some thickening of the distal esophagus noted on CT. No other acute abnormalities. Lab Results Reviewed: Yes Lab Results:: Laboratory Results 03/13/17 Range/Units 23:15 WBC 8.19 (4.8-10.8) 10^3/uL RBC 4.43 (4.20-5.40) 10^6/uL Hgb 13.1 (12.0-16.0) g/dL Hct 38.3 (37.0-47.0) % MCV 86.5 (81-99) FL MCH 29.6 (27-31) PG MCHC 34.2 (33-37) g/dL RDW Std Deviation 41.3 (39-50) fL RDW Coeff of Catina 13.3 (11.5-14.5) % Plt Count 315 (140-350) 10*3/uL MPV 8.7 (7.4-12.2) FL Immature Gran % (Auto) 0.1 (0-5) % Neut % (Auto) 50.5 (50-80) % Lymph % (Auto) 36.9 (10-50) % [place] % (Auto) 10.3 (5-15) % Eos % (Auto) 1.8 (0-8) % Baso % (Auto) 0.4 (0-1) % Immature Gran # (Auto) 0.01 10*3/UL Neut # (Auto) 4.14 10*3/UL Lymph # (Auto) 3.02 10*3/uL [place] # (Auto) 0.84 H (0.3-0.8) 10*3/UL Eos # (Auto) 0.15 10*3/UL Baso # (Auto) 0.03 10*3/UL WBC Morphology Comment Normal morphology (NORM) Plt Morphology Comment Normal morphology (NORM) RBC Morph Comment Normal morphology (NORM) D-Dimer 0.97 H (0.00-0.59) mg/L Sodium 139 (135-145) meq/L Potassium 4.0 (3.8-5.2) meq/L Chloride 102 (98-112) meq/L Carbon Dioxide 23 (23-33) meq/L Anion Gap 14 (5-20) BUN 33 H (7-22) mg/dL Creatinine 1.6 H (0.50-1.20) mg/dL Estimated GFR Ice Carver BUN/Creatinine Ratio 20.62 H (6-20) Glucose 107 (78-110) mg/dL Calculated Osmolality 294.0 H (267-292) mOsm/kg Calcium 10.1 (8.7-10.7) mg/dL Magnesium 1.7 (1.6-2.4) mg/dL Total Bilirubin 0.6 (0.3-1.2) mg/dL AST 24 (8-39) IU/L ALT 23 (9-52) IU/L Alkaline Phosphatase 107 (38-126) IU/L Troponin I < 0.012 (< 0.040) ng/mL C-Reactive Protein 0.9 (0.0-0.9) mg/dL Total Protein 7.1 (6.1-8.0) g/dL Albumin 4.6 (3.5-4.8) g/dL Globulin 2.5 (2.50-4.10) g/dL Albumin/Globulin Ratio 1.80 (1.3-2.0) mg/g Amylase 68 (30-110) U/L Lipase 259 (23-300) IU/L EKG Interpreted/Reviewed By Me:: Yes EKG Interpretation:: POSITIVE: Normal Sinus Rhythm, Normal Rate, Other (Left bundle branch block unchanged from previous) - Patient's Progress MDM / ED Course: The patient had received fentanyl and Zofran in route per EMS. Her pain subsided somewhat however she continued to have pain especially with any attempts at movement. She had a difficult time even trying to get out of bed to use the bathroom. Her lab work is all essentially unremarkable and her EKG shows no acute changes. Her d-dimer is mildly elevated however her creatinine is also elevated at 1.6. CT scan of her abdomen and pelvis done without contrast reveals cholelithiasis with somewhat thickened gallbladder wall concerning for cholecystitis. Because of her continued pain I did contact Dr. Quintanilla who is on-call for general surgery. He stated that he would see the patient in consultation later today. Dr. Adkins subsequently agreed to admit the patient. The patient and her family were notified of current findings and recommendations in her urine agreement with current plan. - Consult Counseled: POSITIVE: Patient, Family, RE: Lab Results, RE: Radiology Results, RE : DX Patient Care Time - Estimated PCT Patient Care Time (In Minutes): 35 Vital Signs - Recent Vital Signs Vital Signs: Vital Signs (Last 8 hours) Temp Pulse Resp BP Pulse Ox 09/29/16 23:14 97.5 F 83 20 204/115 91 - VS Reviewed Vital Signs Reviewed: Yes Discharge Clinical Impression: Cholelithiasis, Acute abdominal pain Discharge Disposition: Admit to Inpatient Condition: Stable Date Decision to Admit to Inpatient: 09/30/16 Time Decision to Admit to Inpatient: 01:30
[2016-09-29 23:34] LABS: PLATELET MORPHOLOGY COMMENT NORMAL MORPHOLOGY (NORM); RBC MORPHOLOGY COMMENT NORMAL MORPHOLOGY (NORM); WBC MORPHOLOGY COMMENT NORMAL MORPHOLOGY (NORM)
[2016-09-29 23:40] LABS: LIPASE 259 IU/L (23-300)
[2016-09-29 23:42] LABS: BLOOD UREA NITROGEN 33 mg/dL (7-22); BUN/CREATININE RATIO 20.62 (6-20); C-REACTIVE PROTEIN 0.9 mg/dL (0.0-0.9); CALCIUM 10.1 mg/dL (8.7-10.7); MAGNESIUM 1.7 mg/dL (1.6-2.4); SERUM ALBUMIN 4.6 g/dL (3.5-4.8)
--- NOTE | 2016-09-29 23:42 | EKG ---
[address] [address] Measurements Intervals [place] Rate: 75 P: 44 AR: 163 QRS: -2 QRSD: 136 T: 89 QT: 408 QTc: 436 Interpretive Statements SINUS RHYTHM LEFT BUNDLE BRANCH BLOCK Compared to ECG 09/20/2016 13:24:44 Sinus bradycardia no longer present Electronically Signed On 09-30-16 07:47:02 MDT by Jamie Bustamante [email or web address]
--- NOTE | 2016-09-30 01:09 | DI ---
HISTORY: Abdominal pain. TECHNIQUE: Contiguous axial unenhanced images of the abdomen and pelvis were obtained and submitted for interpretation. FINDINGS: Evaluation is significantly limited in the absence of oral and intravenous contrast. Normal CT appearance of the liver, spleen, kidneys, and adrenal glands. There is cholelithiasis with borderline thickening of the wall of the gallbladder. Coarse calcifications are noted in the head an d body of the pancreas. These could represent vascular calcifications or the sequela of chronic pancr eatitis. Ureters and bladder are unremarkable. No radiopaque renal or collecting system calculi. No evidence of obstructive uropathy. Hollow viscus organs demonstrate normal course and caliber. There is no intraperitoneal free air or f luid. Vascular structures are intact with atheromatous aortoiliac and coronary artery calcifications . No abdominopelvic lymphadenopathy is present. The uterus is absent and the adnexa are unremarkabl e, though better evaluated with pelvic ultrasound. There is no inguinal or umbilical hernia. There is bibasilar atelectasis versus scar. The lung bases are otherwise clear. The wall of the distal esophagus is thickened, though incompletely distended. Although this could rep resent pseudothickening or a hiatal hernia, an inflammatory or neoplastic process could cause a simil ar appearance. There is diffuse demineralization of the osseous structures with multilevel degenerative disc disease . 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 IMPRESSION: 1. Cholelithiasis with borderline thickening of the wall of the gallbladder. A dedicated right upper quadrant ultrasound should be obtained if there is clinical concern for acute cholecystitis. 2. Coarse calcifications in the head and body of the pancreas could represent vascular calcification s or the sequela of chronic pancreatitis. 3. Bibasilar atelectasis versus scar. 4. Thickened distal esophageal wall could represent pseudothickening or a hiatal hernia, however, an inflammatory or neoplastic process could cause a similar appearance. Correlation with upper GI or en doscopic findings is recommended. 5. Diffuse osseous demineralization with multilevel degenerative disc disease; status post T11 verte broplasty with anterior compression deformity of T11, L1, and L3.
[2016-09-30] MEDS ORDERED: HYDROmorphone 2 MG/1 ML IVP PRN ×2 (01:47→04:29)
[2016-09-30] MEDS ORDERED: LIDOCAINE W/ SODIUM BICARB 0.5 ML SYR SUBD PRN (01:47)
[2016-09-30] MEDS ORDERED: NORMAL SALINE 10 ML SYRINGE FLUSH IVP PRN (01:47)
--- NOTE | 2016-09-30 02:23 | PDOC ---
History and Physical - History of Present Illness Date and Time of Service: 09/02/2016, 2:19 AM Chief Complaint: Abdominal pain History of Present Illness: This very pleasant 81-year-old female with underlying hypertension and mild cognitive impairment versus dementia which is currently in its workup stages who presents today with complaints of abdominal pain. She states that this started tonight after she had a meal was just getting ready to lay down to go to bed. She states the pain was quite intense, no nausea or vomiting, but it has caused her to feel short of breath, and is much worse with positional changes or taking a deep breath. Reportedly, the family stated to the emergency room doctor that she's had intermittent pains like this for the last week or so. A CT scan of the abdomen and pelvis showed gallstones and possible gallbladder wall thickening. No fevers. She states that she gets chills all the time. She states interventions in the ambulance seemed to help her pain to some degree, but she states that the pain is much worse at this time. In terms of her cardiovascular status, she has a chronic left bundle branch block. She does not have any active anginal chest pains or shortness breath. She can walk down a grocery aisle without becoming short of breath. Her creatinine was noted to be 1.6, which is elevated, and she probably has chronic kidney disease, stage III. She does not have congestive heart failure. Past Medical History Medical History: 1. Hypertension. 2. Cognitive impairment, most likely dementia. 3. Anxiety disorder. 4. History of tobacco abuse Surgical History: 1. . 2. Hysterectomy Pertinent Family History: She states that her father had Alzheimer's dementia, both of her parents of myocardial infarctions Past Social History: History of smoking, but denies currently. 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 Does not drink alcohol. Has had assorted history moving from [place] to [place], and is back to [place] for the last 2 weeks with her daughter here. Tobacco Use: Former Smoker Substance Use Type: None Alcohol Use: None Medication / Allergies Home Medications: Home Medications Medication Instructions Recorded Confirmed Type Escitalopram Oxalate 0.5 tab-cap PO DAILY #30 tab-cap 09/17/16 09/29/16 [facility] Hydralazine HCl 1 tab-cap PO BID #60 tab-cap 09/17/16 09/29/16 Clinic Metoprolol Succinate 1 tab PO QHS #30 tab 09/17/16 09/29/16 Clinic Lorazepam [Ativan] 0.5 tab PO QAM #3 tab 09/22/16 09/29/16 Clinic Allergies/Adverse Reactions: Allergies Allergy/AdvReac Type Severity Reaction Status Date / Time No Known Allergies Allergy Verified 09/29/16 23:29 Review of Systems - Review of Systems All Systems: Reviewed & No Additional Complaints Except as Stated (I did a 12 point review of systems and it is negative other than that discussed in the history of present illness and that noted below.) - Constitutional Constitutional: REPORTS: Fever/Chills (Patient complains of chills, denies fevers. She states she gets chills daily.) - Cardiovascular Cardiovascular: REPORTS: Other (Chronic left bundle branch block.) - Gastrointestinal Gastrointestinal / Abdominal: REPORTS: Abdominal Pain, See HPI - Genitourinary Genitourinary: REPORTS: Other (Recurrent urinary infections, but none currently. ) - Neurological Neurologic: REPORTS: Memory Loss - Psychiatric Psychiatric: REPORTS: Anxiety Exam - Vitals Vital Signs: Vital Signs - Last Taken Temperature 97.5 F 09/29/16 23:14 Pulse Rate 83 09/29/16 23:14 Respiratory Rate 20 09/29/16 23:14 Blood Pressure 204/115 09/29/16 23:14 Pulse Ox 91 09/29/16 23:14 Her blood pressure when I examined her had a systolic of 180. As told by the emergency room doctor that is the patient's pain was treated her systolic pressures dropped to 160s. - General General Appearance: POSITIVE: No Acute Distress, Cooperative - Head Head Exam: POSITIVE: Normal Inspection, Normocephalic, Atraumatic - Eye Eye Exam: POSITIVE: No Scleral Icterus - ENT ENT Exam: POSITIVE: Mucous Membranes Moist - Neck Neck Exam: POSITIVE: Normal Inspection, No Tenderness, No Thyromegaly - Respiratory Respiratory Exam: POSITIVE: Clear to Auscultation - Bilaterally, Breathing Non Labored - Cardiovascular Cardiovascular Exam: POSITIVE: RRR, No Murmur, No Clicks, No Gallops, No Rubs, PMI Non-Displaced, No JVD - GI/Abdominal GI/Abdominal Exam: POSITIVE: Normal Bowel Sounds, Non Distended, Soft Additional GI/Abdominal Exam Details: Tender right upper quadrant. Pain increased with movement or with deep breath. - Rectal Rectal Exam: POSITIVE: Deferred - External Exam: POSITIVE: Deferred Exam: POSITIVE: Deferred - Extremities Extremities Exam: POSITIVE: No Clubbing Present, No Edema Present, No Cyanosis Present - Neurological Neurological Exam: POSITIVE: Alert, Oriented x 3, No Facial Droop, Speech Intact / Clear, Moves All Extremities Equally - Psychiatric Psychiatric Exam: POSITIVE: Normal Affect, Normal Mood - Integumentary Integumentary Exam: POSITIVE: Normal Color, Warm, Dry, Intact Results - Labs CBC and BMP: 09/29/16 23:15 09/29/16 23:15 Labs - Last 24 Hours: Laboratory Results 09/29/16 Range/Units 23:15 WBC 8.19 (4.8-10.8) 10^3/uL RBC 4.43 (4.20-5.40) 10^6/uL Hgb 13.1 (12.0-16.0) g/dL Hct 38.3 (37.0-47.0) % MCV 86.5 (81-99) FL MCH 29.6 (27-31) PG MCHC 34.2 (33-37) g/dL RDW Std Deviation 41.3 (39-50) fL RDW Coeff of Catina 13.3 (11.5-14.5) % Plt Count 315 (140-350) 10*3/uL MPV 8.7 (7.4-12.2) FL Immature Gran % (Auto) 0.1 (0-5) % Neut % (Auto) 50.5 (50-80) % Lymph % (Auto) 36.9 (10-50) % [place] % (Auto) 10.3 (5-15) % Eos % (Auto) 1.8 (0-8) % Baso % (Auto) 0.4 (0-1) % Immature Gran # (Auto) 0.01 10*3/UL Neut # (Auto) 4.14 10*3/UL Lymph # (Auto) 3.02 10*3/uL [place] # (Auto) 0.84 H (0.3-0.8) 10*3/UL Eos # (Auto) 0.15 10*3/UL Baso # (Auto) 0.03 10*3/UL WBC Morphology Comment Normal morphology (NORM) Plt Morphology Comment Normal morphology (NORM) RBC Morph Comment Normal morphology (NORM) D-Dimer 0.97 H (0.00-0.59) mg/L Sodium 139 (135-145) meq/L Potassium 4.0 (3.8-5.2) meq/L Chloride 102 (98-112) meq/L Carbon Dioxide 23 (23-33) meq/L Anion Gap 14 (5-20) BUN 33 H (7-22) mg/dL Creatinine 1.6 H (0.50-1.20) mg/dL Estimated GFR Paramedic BUN/Creatinine Ratio 20.62 H (6-20) Glucose 107 (78-110) mg/dL Calculated Osmolality 294.0 H (267-292) mOsm/kg Calcium 10.1 (8.7-10.7) mg/dL Magnesium 1.7 (1.6-2.4) mg/dL Total Bilirubin 0.6 (0.3-1.2) mg/dL AST 24 (8-39) IU/L ALT 23 (9-52) IU/L Alkaline Phosphatase 107 (38-126) IU/L Troponin I < 0.012 (< 0.040) ng/mL C-Reactive Protein 0.9 (0.0-0.9) mg/dL Total Protein 7.1 (6.1-8.0) g/dL Albumin 4.6 (3.5-4.8) g/dL Globulin 2.5 (2.50-4.10) g/dL Albumin/Globulin Ratio 1.80 (1.3-2.0) mg/g Amylase 68 (30-110) U/L Lipase 259 (23-300) IU/L - EKG Data -: EKG Interpreted by Me Rate: Normal EKG Shows Normal: Sinus Rhythm - EKG Data EKG Interpretation: Nonspecific ST-T Wave Changes (T-wave inversions in 1 and aVL), Other (Left bundle branch block.) - Imaging Status: Image Reviewed by Me (I looked at the CT scan of the abdomen, I do see stones in the gallbladder.) Assessment and Plan - Patient Problems (1) Cholecystitis Current Visit: Yes Status: Acute (2) Cholelithiasis Current Visit: Yes Status: Acute Qualifiers: Cholelithiasis location: gallbladder Cholecystitis presence: with cholecystitis Cholecystitis acuity: acute Biliary obstruction: without biliary obstruction Qualified Description: Calculus of gallbladder with acute cholecystitis without obstruction Qualifier Code(s): (K80.00) Calculus of gallbladder with acute cholecystitis without obstruction (3) Hypertension Current Visit: Yes Status: Acute Qualifiers: Hypertension type: essential hypertension Qualified Description: Essential hypertension Qualifier Code(s): (I10) Essential (primary) hypertension (4) Chronic kidney disease Current Visit: Yes Status: Acute Qualifiers: Chronic kidney disease stage: stage 3 (moderate) Qualified Description : Chronic kidney disease, stage 3 (moderate) Qualifier Code(s): (N18.3) Chronic kidney disease, stage 3 (moderate) (5) Acute renal failure Current Visit: Yes Status: Acute Qualifiers: Acute renal failure type: unspecified Qualified Description: Acute renal failure, unspecified acute renal failure type Qualifier Code(s): ( N17.9) Acute kidney failure, unspecified (6) Anxiety disorder Current Visit: Yes Status: Acute Qualifiers: Anxiety disorder type: generalized anxiety disorder Qualified Description: Generalized anxiety disorder Qualifier Code(s): (F41.1) Generalized anxiety disorder - Assessment / Plan Additional Assessment/Plan Details: Admit the patient. Keep nothing by mouth/fluids will be given via IV/narcotics or parenteral pain control due to need for nothing by mouth status. I discussed CODE STATUS with the patient, and she stated that, "if the good Lord states it's my time to go, then it is my time and don't do anything." She is DO NOT RESUSCITATE. Ultrasound in the morning. Consult surgery, surgery is aware the patient and we'll see later this morning. At this point, patient does not have any fevers, but if she develops any then I will start Rocephin and Flagyl empirically. In terms of surgery risk, the patient's biggest risk factors are her age and her creatinine at 1.6. She does not have anginal symptoms. I think she can proceed with surgery with postoperative risk stratification due to the nature of her presentation. Antiemetics will be written for. All medications be written for including beta paola and when necessary BP medications I discussed this above with the patient, and she agreed to the plan. No family was at bedside to discuss further.
[2016-09-30] MEDS ORDERED: Pantoprazole Inj 40 MG in Normal Saline Flush 10 ML IVP ONE (02:34)
[2016-09-30] MEDS ORDERED: LABETALOL 20 MG/4 ML (5 MG/1 ML) SYRINGE IVP PRN (02:36)
[2016-09-30] MEDS: METOPROLOL SUCCINATE 25 MG SR 24H TABLET PO SCH ×2 (02:40→20:27)
[2016-09-30] MEDS: Sodium Chloride 0.9% 1,000 ML PRIMARY IV SCH ×3 (02:42→14:38)
[2016-09-30] MEDS: ONDANSETRON 4 MG/2 ML VIAL IVP PRN ×2 (07:45→17:24)
[2016-09-30] MEDS: ESCITALOPRAM 10 MG TABLET PO SCH (08:34)
[2016-09-30] MEDS: Pantoprazole Inj 40 MG in Normal Saline Flush 10 ML IVP SCH (08:34)
[2016-09-30 08:41] LABS: BASOPHILS # (AUTO) 0.01 10*3/UL; BASOPHILS % (AUTO) 0.2 % (0-1); EOSINOPHILS # (AUTO) 0.02 10*3/UL; EOSINOPHILS % (AUTO) 0.3 % (0-8); HEMATOCRIT 33.2 % (37.0-47.0); HEMOGLOBIN 11.2 g/dL (12.0-16.0); LYMPHOCYTES # (AUTO) 0.93 10*3/uL; MEAN CORPUSCULAR HEMOGLOBIN 29.5 PG (27-31); MEAN CORPUSCULAR HGB CONC 33.7 g/dL (33-37); MEAN CORPUSCULAR VOLUME 87.4 FL (81-99); MEAN PLATELET VOLUME 8.4 FL (7.4-12.2); MONOCYTES # (AUTO) 0.41 10*3/UL (0.3-0.8); MONOCYTES % (AUTO) 6.6 % (5-15); NEUTROPHILS # (AUTO) 4.82 10*3/UL; NEUTROPHILS % (AUTO) 77.9 % (50-80)
[2016-09-30 08:43] LABS: PLATELET MORPHOLOGY COMMENT NORMAL MORPHOLOGY (NORM); RBC MORPHOLOGY COMMENT NORMAL MORPHOLOGY (NORM); WBC MORPHOLOGY COMMENT NORMAL MORPHOLOGY (NORM)
[2016-09-30 08:46] LABS: BUN/CREATININE RATIO 20.83 (6-20); CALCIUM 8.8 mg/dL (8.7-10.7); SERUM ALBUMIN 3.7 g/dL (3.5-4.8)
[2016-09-30] MEDS ORDERED: ESCITALOPRAM 10 MG TABLET PO SCH (09:00)
--- NOTE | 2016-09-30 09:16 | DI ---
GALLBLADDER AND LIVER ULTRASOUND, 09/30/2016 7:00 AM: Clinical History: Cholelithiasis. Previous Exam: None at this facility. Technique: Scans are performed through the right upper quadrant in multiple projections. The gallbladder is moderately well distended and has a normal wall thickness. The gallbladder wall is echogenic but there is no edema. Numerous gallstones are present. The common bile duct measures 9 mm and this is dilated. There is no intrahepatic biliary dilatation. There is no Soto's sign. The juancarlos er appears normal. The pancreas is visualized from the head to the body and is normal. There is marke d cortical thinning of the right kidney and it measures approximately 80 mm in length. There is no hy dronephrosis. Perfusion is normal to the kidney. The IVC and aorta are normal. Readin. Cholelithiasis with probable chronic cholecystitis. There is no Soto's sign. The common bile du ct measures 9 mm and this is dilated. However, there is no intrahepatic biliary dilatation. 2. The right kidney shows cortical thinning without hydronephrosis. There is normal perfusion to the kidney. 3. The liver, limited views of the pancreas, and the aorta and IVC are normal.
[2016-09-30] MEDS ORDERED: Potassium Chloride 20 mEq 20 MEQ in Premix 1 BAG IV ONE (12:55)
--- NOTE | 2016-09-30 13:00 | PDOC(PROG) ---
Date and Time of Service: 09/30/2016, 1255 Interval History: No chest pain. No shortness breath. She states the abdominal pain that she had last night and has completely resolved. Soto sign is now negative and it was positive in the emergency room. She states that she may have had the pain recently within the last week but can't recall being on that. No fevers and no chills. Objective : Data - Labs CBC and BMP: 09/30/16 08:20 09/30/16 08:20 Labs - Last 24 Hours: Laboratory Results 09/30/16 Range/Units 08:20 WBC 6.19 (4.8-10.8) 10^3/uL RBC 3.80 L (4.20-5.40) 10^6/uL Hgb 11.2 L (12.0-16.0) g/dL Hct 33.2 L (37.0-47.0) % MCV 87.4 (81-99) FL MCH 29.5 (27-31) PG MCHC 33.7 (33-37) g/dL RDW Std Deviation 40.8 (39-50) fL RDW Coeff of Catina 13.2 (11.5-14.5) % Plt Count 266 (140-350) 10*3/uL MPV 8.4 (7.4-12.2) FL Immature Gran % (Auto) 0 (0-5) % Neut % (Auto) 77.9 (50-80) % Lymph % (Auto) 15.0 (10-50) % [place] % (Auto) 6.6 (5-15) % Eos % (Auto) 0.3 (0-8) % Baso % (Auto) 0.2 (0-1) % Immature Gran # (Auto) 0 10*3/UL Neut # (Auto) 4.82 10*3/UL Lymph # (Auto) 0.93 10*3/uL [place] # (Auto) 0.41 (0.3-0.8) 10*3/UL Eos # (Auto) 0.02 10*3/UL Baso # (Auto) 0.01 10*3/UL WBC Morphology Comment Normal morphology (NORM) Plt Morphology Comment Normal morphology (NORM) RBC Morph Comment Normal morphology (NORM) Sodium 140 (135-145) meq/L Potassium 3.7 L (3.8-5.2) meq/L Chloride 106 (98-112) meq/L Carbon Dioxide 22 L (23-33) meq/L Anion Gap 12 (5-20) BUN 25 H (7-22) mg/dL Creatinine 1.2 (0.50-1.20) mg/dL Estimated GFR (>60 ml/min/1.73m(2)) BUN/Creatinine Ratio 20.83 H (6-20) Glucose 113 H (78-110) mg/dL Calculated Osmolality 294.0 H (267-292) mOsm/kg Calcium 8.8 (8.7-10.7) mg/dL Total Bilirubin 0.7 (0.3-1.2) mg/dL AST 20 (8-39) IU/L ALT 24 (9-52) IU/L Alkaline Phosphatase 77 (38-126) IU/L Total Protein 6.2 (6.1-8.0) g/dL Albumin 3.7 (3.5-4.8) g/dL Globulin 2.4 L (2.50-4.10) g/dL Albumin/Globulin Ratio 1.50 (1.3-2.0) mg/g Lipase 81 (23-300) IU/L - Imaging Ultrasound Status: Report Reviewed by Me (Ultrasound shows a bubble chronic cholecystitis and cholelithiasis with a slightly dilated common bile duct although at 9 mm one could argue it's within the normal range given the patient's age of 81) Objective : Exam - General General Appearance: No Acute Distress, Cooperative Additional General Exam Details: Vital Signs - Last Taken Temperature 98.2 F 09/30/16 11:20 Pulse Rate 71 09/30/16 11:20 Respiratory Rate 18 09/30/16 11:20 Blood Pressure 143/75 09/30/16 11:20 Pulse Ox 94 09/30/16 11:20 - Eye Eye Exam: No Scleral Icterus - Respiratory Respiratory Exam: Clear to Auscultation - Bilaterally, Breathing Non Labored - Cardiovascular Cardiovascular Exam: RRR, No Murmur, No Clicks, No Gallops, No Rubs, No JVD - GI/Abdominal GI/Abdominal Exam: Normal Bowel Sounds, Non Tender, Non Distended, Soft - Extremities Extremities Exam: No Clubbing Present, No Edema Present, No Cyanosis Present - Neurological Neurological Exam: Alert, Oriented x 3, No Facial Droop, Speech Intact / Clear, Moves All Extremities Equally Assessment and Plan - Patient Problems (1) Cholelithiasis Current Visit: Yes Status: Acute Qualifiers: Cholelithiasis location: gallbladder Cholecystitis presence: with cholecystitis Cholecystitis acuity: acute Biliary obstruction: without biliary obstruction Qualified Description: Calculus of gallbladder with acute cholecystitis without obstruction Qualifier Code(s): (K80.00) Calculus of gallbladder with acute cholecystitis without obstruction (2) Cholecystitis Current Visit: Yes Status: Chronic (3) Hypertension Current Visit: Yes Status: Acute Qualifiers: Hypertension type: essential hypertension Qualified Description: Essential hypertension Qualifier Code(s): (I10) Essential (primary) hypertension (4) Chronic kidney disease Current Visit: Yes Status: Acute Qualifiers: Chronic kidney disease stage: stage 3 (moderate) Qualified Description : Chronic kidney disease, stage 3 (moderate) Qualifier Code(s): (N18.3) Chronic kidney disease, stage 3 (moderate) (5) Acute renal failure Current Visit: Yes Status: Resolved Qualifiers: Acute renal failure type: unspecified Qualified Description: Acute renal failure, unspecified acute renal failure type Qualifier Code(s): ( N17.9) Acute kidney failure, unspecified (6) Anxiety disorder Current Visit: Yes Status: Acute Qualifiers: Anxiety disorder type: generalized anxiety disorder Qualified Description: Generalized anxiety disorder Qualifier Code(s): (F41.1) Generalized anxiety disorder - Assessment / Plan Additional Assessment/Plan Details: Terms of the gallbladder, surgery is consulted. I do think the patient will continue to have biliary colic. Although she had a positional component to her pain, my suspicion is that anytime she would take a deep breath there was expansion against the gallbladder and that may have caused some of the pain that she had with motion. She did state pretty clearly in her history yesterday and today in discussion with her that her pain started after eating. She had at least one other episode of this in the last week. Patient's social situation is complex in that she is trying to find a new home. I suspect she has a mild cognitive impairment, and I will get case management involved to help out. She may do very well with assisted living. Stop telemetry. Continue IV fluids. Given a dose of potassium. Acute renal failure appears better with fluids overnight and into the morning. Probably she had a little prerenal azotemia. Continue nothing by mouth. No indication for antibiotics at this time. I do not think she has acute cholecystitis.
--- NOTE | 2016-09-30 15:28 | CONSULT ---
Consult Note - Consult Consult Date: 09/30/16 Reason for Consult: PreOp Consulation : General Surgery Requesting Physician: Dr. Hawley. Dr. Elmore. Primary Care Provider: Melvin Puente MD - History of Present Illness History of Present Illness: Patient is an 81-year-old female who had the onset of severe abdominal pressure and pain last night while getting ready for bed. She ate a fatty dinner and was watching TV. She felt she had to get up and go to the bathroom and developed severe epigastric pain with pressure and bloating. She had nausea without vomiting. She's never had an attack like this before. There is a family history of gallbladder disease. She presented to the emergency room. Lab tests were normal. CT scan shows multiple gallstones and question gallbladder wall thickening. In retrospective review today it appears there may be a common bile duct stone. Her distal esophagus was described as thickened but review with our radiologist today feels this is just secondary to a hiatal hernia. Patient was admitted to the hospital. She got some pain medicines last night and feels much better this morning. Her lab remains normal this morning. Ultrasound is done and shows multiple gallstones. There is no gallbladder wall thickening. Her common bile duct is 9 mm in size. I met with the patient and discussed her options. They include conservative treatment with feeding her and seeing if the pain recurs versus proceeding with surgical removal of the gallbladder. I told her there might be a possibility of an ERCP. At this time she says she wants to schedule the surgery. We will visit with her more in the morning. Review of Systems - Gastrointestinal Gastrointestinal / Abdominal: REPORTS: Nausea, Abdominal Pain, Bloating, See HPI Past Medical History Medical History: 1. Hypertension. 2. Cognitive impairment, most likely dementia. 3. Anxiety disorder. 4. History of tobacco abuse Surgical History: 1. . 2. Hysterectomy, patient unclear if her ovaries were removed or not. 3. Appendectomy Pertinent Family History: She states that her father had Alzheimer's dementia, both of her parents of myocardial infarctions Past Social History: History of smoking, but denies currently. 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 Does not drink alcohol. Has had assorted history moving from [place] to [place], and is back to [place] for the last 2 weeks with her daughter here. Tobacco Use: Former Smoker Substance Use Type: None Alcohol Use: None Medication / Allergies Home Medications: Home Medications Medication Instructions Recorded Confirmed Type Escitalopram Oxalate 0.5 tab-cap PO DAILY #30 tab-cap 09/17/16 09/29/16 [facility] Hydralazine HCl 1 tab-cap PO BID #60 tab-cap 09/17/16 09/29/16 [facility] Metoprolol Succinate 1 tab PO QHS #30 tab 09/17/16 09/29/16 Clinic Lorazepam [Ativan] 0.5 tab PO QAM #3 tab 09/22/16 09/29/16 [facility] Allergies/Adverse Reactions: Allergies Allergy/AdvReac Type Severity Reaction Status Date / Time No Known Allergies Allergy Verified 09/30/16 07:28 Exam - Vitals Vital Signs: Vital Signs Temperature 98.2 F Temperature Source Tympanic Pulse Rate [Pulse Oximeter] 71 Pulse Rate 66 Respiratory Rate 18 Blood Pressure [Left Arm] 143/75 Blood Pressure [Right Arm] 131/71 Blood Pressure 181/94 Pulse Ox 94 Oxygen Flow Rate 1 Oxygen Delivery Method Room Air Height 4 ft 11 in Weight 48.534 kg - General General Appearance: POSITIVE: No Acute Distress, Cooperative - Eye Eye Exam: POSITIVE: No Scleral Icterus - Respiratory Respiratory Exam: POSITIVE: Clear to Auscultation - Bilaterally, Breathing Non Labored - Cardiovascular Cardiovascular Exam: POSITIVE: RRR, No Murmur - GI/Abdominal GI/Abdominal Exam: POSITIVE: Normal Bowel Sounds, Non Distended, Soft Additional GI/Abdominal Exam Details: Minimal if any residual tenderness in the epigastrium and right upper quadrant. - Rectal Rectal Exam: POSITIVE: Deferred - Psychiatric Psychiatric Exam: POSITIVE: Normal Affect, Normal Mood Results - Labs CBC and BMP: 09/30/16 08:20 09/30/16 08:20 Labs - Last 24 Hours: Laboratory Results 09/30/16 Range/Units 08:20 WBC 6.19 (4.8-10.8) 10^3/uL RBC 3.80 L (4.20-5.40) 10^6/uL Hgb 11.2 L (12.0-16.0) g/dL Hct 33.2 L (37.0-47.0) % MCV 87.4 (81-99) FL MCH 29.5 (27-31) PG MCHC 33.7 (33-37) g/dL RDW Std Deviation 40.8 (39-50) fL RDW Coeff of Catina 13.2 (11.5-14.5) % Plt Count 266 (140-350) 10*3/uL MPV 8.4 (7.4-12.2) FL Immature Gran % (Auto) 0 (0-5) % Neut % (Auto) 77.9 (50-80) % Lymph % (Auto) 15.0 (10-50) % [place] % (Auto) 6.6 (5-15) % Eos % (Auto) 0.3 (0-8) % Baso % (Auto) 0.2 (0-1) % Immature Gran # (Auto) 0 10*3/UL Neut # (Auto) 4.82 10*3/UL Lymph # (Auto) 0.93 10*3/uL [place] # (Auto) 0.41 (0.3-0.8) 10*3/UL Eos # (Auto) 0.02 10*3/UL Baso # (Auto) 0.01 10*3/UL WBC Morphology Comment Normal morphology (NORM) Plt Morphology Comment Normal morphology (NORM) RBC Morph Comment Normal morphology (NORM) Sodium 140 (135-145) meq/L Potassium 3.7 L (3.8-5.2) meq/L Chloride 106 (98-112) meq/L Carbon Dioxide 22 L (23-33) meq/L Anion Gap 12 (5-20) BUN 25 H (7-22) mg/dL Creatinine 1.2 (0.50-1.20) mg/dL Estimated GFR (>60 ml/min/1.73m(2)) BUN/Creatinine Ratio 20.83 H (6-20) Glucose 113 H (78-110) mg/dL Calculated Osmolality 294.0 H (267-292) mOsm/kg Calcium 8.8 (8.7-10.7) mg/dL Total Bilirubin 0.7 (0.3-1.2) mg/dL AST 20 (8-39) IU/L ALT 24 (9-52) IU/L Alkaline Phosphatase 77 (38-126) IU/L Total Protein 6.2 (6.1-8.0) g/dL Albumin 3.7 (3.5-4.8) g/dL Globulin 2.4 L (2.50-4.10) g/dL Albumin/Globulin Ratio 1.50 (1.3-2.0) mg/g Lipase 81 (23-300) IU/L - Imaging Status: Image Reviewed by Me (And the local radiologist.), Report Reviewed by Me (Distal esophagus thickening appears to be a simple hiatal hernia. Possible distal common bile duct stones seen on CT.) Assessment and Plan - Patient Problems (1) Cholelithiasis with chronic cholecystitis without biliary obstruction Current Visit: Yes Status: Acute Priority: High Diagnosis Date: 09/29/16 Comment: We will proceed with laparoscopic cholecystectomy with intraoperative cholangiogram. Possibility of a postoperative ERCP has been discussed. Possibility of an open procedure has been discussed.The procedure has been discussed with the patient in complete yet simple terms including benefits, risks, and alternatives. All questions have been answered. Informed consent has been obtained. Surgery is scheduled for 10:30 tomorrow morning. We'll allow the patient clear liquids until midnight.
[2016-09-30] MEDS ORDERED: LORazepam 1 MG TABLET PO ONE (18:42)
[2016-10-01 06:23] LABS: BASOPHILS # (AUTO) 0.02 10*3/UL; BASOPHILS % (AUTO) 0.4 % (0-1); EOSINOPHILS # (AUTO) 0.17 10*3/UL; EOSINOPHILS % (AUTO) 3.1 % (0-8); HEMATOCRIT 30.3 % (37.0-47.0); LYMPHOCYTES # (AUTO) 1.49 10*3/uL; MEAN CORPUSCULAR HEMOGLOBIN 29.2 PG (27-31); MEAN CORPUSCULAR VOLUME 88.6 FL (81-99); MEAN PLATELET VOLUME 8.3 FL (7.4-12.2); MONOCYTES # (AUTO) 0.51 10*3/UL (0.3-0.8); MONOCYTES % (AUTO) 9.3 % (5-15); NEUTROPHILS # (AUTO) 3.31 10*3/UL; RED BLOOD COUNT 3.42 10^6/uL (4.20-5.40)
[2016-10-01 06:26] LABS: PLATELET MORPHOLOGY COMMENT NORMAL MORPHOLOGY (NORM); RBC MORPHOLOGY COMMENT NORMAL MORPHOLOGY (NORM); WBC MORPHOLOGY COMMENT NORMAL MORPHOLOGY (NORM)
[2016-10-01 06:30] LABS: BUN/CREATININE RATIO 17.5 (6-20); CALCIUM 8.8 mg/dL (8.7-10.7); SERUM ALBUMIN 3.1 g/dL (3.5-4.8)
[2016-10-01] MEDS: Pantoprazole Inj 40 MG in Normal Saline Flush 10 ML IVP SCH (08:57)
--- NOTE | 2016-10-01 11:45 | PDOC(PROG) ---
Date and Time of Service: 10/01/2016. 11:40 AM Interval History: Yesterday patient consented to proceed with laparoscopic cholecystectomy with intraoperative cholangiogram with possible postoperative ERCP having been discussed. The possibility of open surgery was discussed as well. All risks and benefits were discussed. Patient agreed to proceed but was kind of encouraged to do so by her family. Throughout the night the patient said she did not want to have surgery. She stated to the nurse that she knew the risks of not doing so. I talked to her earlier this morning and she told me she did not want to have surgery. That continued until the patient's daughter arrived. There is a question the patient is being pressured into consenting for surgery. Her decision waxes and wanes as to whether she wants to have surgery. There is some underlying degree of dementia. She is pain free at this time. She is not nauseated. There is certainly no emergent indication for surgical intervention. I do not feel the patient is able to make an informed decision at this time. The surgical procedure will be canceled. I recommend starting her on a diet. Please call if her pain recurs. The hospitalist is working with the family to get a DURABLE POWER OF SEAMLESS TUBE ROLLER. Objective : Data - Labs CBC and BMP: 10/01/16 06:13 10/01/16 06:13 Labs - Last 24 Hours: Laboratory Results 09/30/16 10/01/16 Range/Units 08:20 06:13 WBC 5.51 (4.8-10.8) 10^3/uL RBC 3.42 L (4.20-5.40) 10^6/uL Hgb 10.0 L (12.0-16.0) g/dL Hct 30.3 L (37.0-47.0) % MCV 88.6 (81-99) FL MCH 29.2 (27-31) PG MCHC 33.0 (33-37) g/dL RDW Std Deviation 41.4 (39-50) fL RDW Coeff of Catina 13.3 (11.5-14.5) % Plt Count 228 (140-350) 10*3/uL MPV 8.3 (7.4-12.2) FL Immature Gran % (Auto) 0.2 (0-5) % Neut % (Auto) 60.0 (50-80) % Lymph % (Auto) 27.0 (10-50) % [place] % (Auto) 9.3 (5-15) % Eos % (Auto) 3.1 (0-8) % Baso % (Auto) 0.4 (0-1) % Immature Gran # (Auto) 0.01 10*3/UL Neut # (Auto) 3.31 10*3/UL Lymph # (Auto) 1.49 10*3/uL [place] # (Auto) 0.51 (0.3-0.8) 10*3/UL Eos # (Auto) 0.17 10*3/UL Baso # (Auto) 0.02 10*3/UL WBC Morphology Comment Normal morphology (NORM) Plt Morphology Comment Normal morphology (NORM) RBC Morph Comment Normal morphology (NORM) Sodium 140 (135-145) meq/L Potassium 3.7 L (3.8-5.2) meq/L Chloride 110 (98-112) meq/L Carbon Dioxide 21 L (23-33) meq/L Anion Gap 9 (5-20) BUN 21 (7-22) mg/dL Creatinine 1.2 (0.50-1.20) mg/dL Estimated GFR (>60 ml/min/1.73m(2)) BUN/Creatinine Ratio 17.50 (6-20) Glucose 72 L (78-110) mg/dL Calculated Osmolality 291.0 (267-292) mOsm/kg Calcium 8.8 (8.7-10.7) mg/dL Total Bilirubin 0.8 (0.3-1.2) mg/dL AST 19 (8-39) IU/L ALT 20 (9-52) IU/L Alkaline Phosphatase 62 (38-126) IU/L Total Protein 5.3 L (6.1-8.0) g/dL Albumin 3.1 L (3.5-4.8) g/dL Globulin 2.2 L (2.50-4.10) g/dL Albumin/Globulin Ratio 1.40 (1.3-2.0) mg/g Vitamin D 25-Hydroxy 29.1 L (30-100) NG/ML - Vital Signs Vital Signs and I&O: Vital Signs - Last Taken Temperature 97.4 F 10/01/16 07:29 Pulse Rate 86 10/01/16 07:29 Respiratory Rate 22 10/01/16 07:44 Blood Pressure 155/93 10/01/16 07:29 Pulse Ox 91 10/01/16 07:29 Intake and Output (24hr x 4 totals) 09/29/16 09/30/16 10/01/16 10/02/16 05:59 05:59 05:59 05:59 Intake Total 3357 Output Total 1470 50 Balance 1887 -50 Objective : Exam - General General Appearance: No Acute Distress, Cooperative - GI/Abdominal GI/Abdominal Exam: Normal Bowel Sounds, Non Tender, Non Distended, Soft Additional GI/Abdominal Exam Details: Benign abdominal exam this a.m. - Neurological Neurological Exam: Alert - Psychiatric Psychiatric Exam: Normal Affect, Normal Mood Assessment and Plan - Patient Problems (1) Cholelithiasis with chronic cholecystitis without biliary obstruction Current Visit: Yes Status: Acute Priority: High Diagnosis Date: 09/29/16 Comment: No indication for emergent surgical intervention. There is a question as to whether the patient can make an informed decision. She most recently told me that she does not want to have surgery. Her surgical procedure has been canceled for now. The hospitalist will call if recurrent symptoms with oral intake. The staff will work on arranging a DURABLE POWER OF SEAMLESS TUBE ROLLER in case we need to proceed with surgical intervention.
[2016-10-01] MEDS: ESCITALOPRAM 10 MG TABLET PO SCH (12:24)
--- NOTE | 2016-10-01 17:56 | PDOC(PROG) ---
Date and Time of Service: 10/01/2016,1755 Interval History: no complaints of abdominal pain today. no chest pain and no shortness of breath. no nausea or vomiting. see assessment and plan for details of decisions regarding surgery. Objective : Data - Labs CBC and BMP: 10/01/16 06:13 10/01/16 06:13 Labs - Last 24 Hours: Laboratory Results 09/30/16 10/01/16 Range/Units 08:20 06:13 WBC 5.51 (4.8-10.8) 10^3/uL RBC 3.42 L (4.20-5.40) 10^6/uL Hgb 10.0 L (12.0-16.0) g/dL Hct 30.3 L (37.0-47.0) % MCV 88.6 (81-99) FL MCH 29.2 (27-31) PG MCHC 33.0 (33-37) g/dL RDW Std Deviation 41.4 (39-50) fL RDW Coeff of Catina 13.3 (11.5-14.5) % Plt Count 228 (140-350) 10*3/uL MPV 8.3 (7.4-12.2) FL Immature Gran % (Auto) 0.2 (0-5) % Neut % (Auto) 60.0 (50-80) % Lymph % (Auto) 27.0 (10-50) % [place] % (Auto) 9.3 (5-15) % Eos % (Auto) 3.1 (0-8) % Baso % (Auto) 0.4 (0-1) % Immature Gran # (Auto) 0.01 10*3/UL Neut # (Auto) 3.31 10*3/UL Lymph # (Auto) 1.49 10*3/uL [place] # (Auto) 0.51 (0.3-0.8) 10*3/UL Eos # (Auto) 0.17 10*3/UL Baso # (Auto) 0.02 10*3/UL WBC Morphology Comment Normal morphology (NORM) Plt Morphology Comment Normal morphology (NORM) RBC Morph Comment Normal morphology (NORM) Sodium 140 (135-145) meq/L Potassium 3.7 L (3.8-5.2) meq/L Chloride 110 (98-112) meq/L Carbon Dioxide 21 L (23-33) meq/L Anion Gap 9 (5-20) BUN 21 (7-22) mg/dL Creatinine 1.2 (0.50-1.20) mg/dL Estimated GFR (>60 ml/min/1.73m(2)) BUN/Creatinine Ratio 17.50 (6-20) Glucose 72 L (78-110) mg/dL Calculated Osmolality 291.0 (267-292) mOsm/kg Calcium 8.8 (8.7-10.7) mg/dL Total Bilirubin 0.8 (0.3-1.2) mg/dL AST 19 (8-39) IU/L ALT 20 (9-52) IU/L Alkaline Phosphatase 62 (38-126) IU/L Total Protein 5.3 L (6.1-8.0) g/dL Albumin 3.1 L (3.5-4.8) g/dL Globulin 2.2 L (2.50-4.10) g/dL Albumin/Globulin Ratio 1.40 (1.3-2.0) mg/g Vitamin D 25-Hydroxy 29.1 L (30-100) NG/ML Objective : Exam - General General Appearance: No Acute Distress, Cooperative Additional General Exam Details: Vital Signs - Last Taken Temperature 98.0 F 10/01/16 17:00 Pulse Rate 85 10/01/16 17:00 Respiratory Rate 20 10/01/16 17:00 Blood Pressure 169/86 10/01/16 17:00 Pulse Ox 94 10/01/16 17:00 - Eye Eye Exam: No Scleral Icterus - Respiratory Respiratory Exam: Clear to Auscultation - Bilaterally, Breathing Non Labored - Cardiovascular Cardiovascular Exam: RRR, No Murmur, No Clicks, No Gallops, No Rubs, No JVD - GI/Abdominal GI/Abdominal Exam: Normal Bowel Sounds, Non Tender, Non Distended, Soft - Extremities Extremities Exam: No Clubbing Present, No Edema Present, No Cyanosis Present - Neurological Neurological Exam: Alert, No Facial Droop, Speech Intact / Clear, Moves All Extremities Equally Additional Neurological Exam Details: oriented to person, place, and situation. good cognition with yes and no type question. with complex decisions, patient may need some help - Psychiatric Psychiatric Exam: Normal Affect, Normal Mood Assessment and Plan - Patient Problems (1) Cholelithiasis Current Visit: Yes Status: Acute Qualifiers: Cholelithiasis location: gallbladder Cholecystitis presence: with cholecystitis Cholecystitis acuity: acute Biliary obstruction: without biliary obstruction Qualified Description: Calculus of gallbladder with acute cholecystitis without obstruction Qualifier Code(s): (K80.00) Calculus of gallbladder with acute cholecystitis without obstruction (2) Cholecystitis Current Visit: Yes Status: Chronic Comment: no evidence of acute cholecystitis (3) Hypertension Current Visit: Yes Status: Acute Qualifiers: Hypertension type: essential hypertension Qualified Description: Essential hypertension Qualifier Code(s): (I10) Essential (primary) hypertension (4) Chronic kidney disease Current Visit: Yes Status: Acute Qualifiers: Chronic kidney disease stage: stage 3 (moderate) Qualified Description : Chronic kidney disease, stage 3 (moderate) Qualifier Code(s): (N18.3) Chronic kidney disease, stage 3 (moderate) (5) Anxiety disorder Current Visit: Yes Status: Acute Qualifiers: Anxiety disorder type: generalized anxiety disorder Qualified Description: Generalized anxiety disorder Qualifier Code(s): (F41.1) Generalized anxiety disorder (6) Dementia Current Visit: Yes Status: Acute Qualifiers: Dementia type: Alzheimer's disease Alzheimer's disease onset: late- onset Dementia behavioral disturbance: without behavioral disturbance Qualified Description: Late onset 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 - Assessment / Plan Additional Assessment/Plan Details: This is a complex situation in which the patient has dementia, but is still lucid enough to make some decisions. She is very clear and expresses understanding of things like her CODE STATUS, which she states is DO NOT RESUSCITATE, whether or not she wanted antibiotics for an infection which she states she would like to do, whether or not she would want dialysis, which she states she would not want based on her age, and whether or not she wanted a feeding tube which she was adamant that she would not want. However, when discussing surgery, the decision was to complex for her to understand all of the risks and benefits involved. She has been hesitant to proceed with cholecystectomy, and there appears to be no acute indication to do so as we have ruled out acute cholecystitis. There appears to be chronic cholecystitis, but is difficult for me to know what that means often image versus pathology. The patient has stones, but no evidence of a common bile duct obstruction and her LFTs and liver enzymes and total bilirubin have all been normal. Therefore, I think it's best to hold off on surgery, and I spoke with the patient, and her daughter's significant other, and feel that the best way to manage this patient is to help her get a power of immigration attorney to help her make decisions when elective procedures are at stake. I also spoke to surgery about this and we were all in agreement that surgery should not be done today. We are going to let the patient eat and if her pain returns, we can revisit doing elective cholecystectomy. If the pain does not return on May need to consider discharging the patient, however we have also learned that the patient's daughter does not want her to come back home at this time and states that she cannot care for her with her dementia. We will look at assisted living and supportive therapy and do some evaluations there. The patient's daughter's significant other was willing to become the power of immigration attorney, his name is Rahul. However, as the day went on Rahul decided he did not want that responsibility. The patient does not feel that any of her children including her daughter, Geovanna, want that responsibility and she does not want to give that to them. Stop fluids and start diet. Overall, I spent 45 minutes with this patient with over 50% spent counseling and coordinating the care plan above.
[2016-10-01] MEDS: Sodium Chloride 0.9% 1,000 ML PRIMARY IV SCH (18:48)
[2016-10-01] MEDS: METOPROLOL SUCCINATE 25 MG SR 24H TABLET PO SCH (20:07)
[2016-10-02 06:58] LABS: BLOOD UREA NITROGEN 24 mg/dL (7-22); BUN/CREATININE RATIO 18.46 (6-20); CALCIUM 9.3 mg/dL (8.7-10.7); SERUM ALBUMIN 3.3 g/dL (3.5-4.8)
[2016-10-02] MEDS: Sodium Chloride 0.9% 1,000 ML PRIMARY IV SCH (08:05)
[2016-10-02] MEDS: ESCITALOPRAM 10 MG TABLET PO SCH (09:06)
[2016-10-02] MEDS: Pantoprazole Inj 40 MG in Normal Saline Flush 10 ML IVP SCH ×2 (09:06→11:17)
--- NOTE | 2016-10-02 16:41 | PDOC(PROG) ---
Date and Time of Service: 10/02/2016, 1640 Interval History: This morning, no completes of chest pain, no shortness breath, no nausea or vomiting, no return of abdominal pain with diet. She is very emotional about the fact that she has nowhere to go at this point. We are working with case management to see if we can place the patient, most likely [facility] facility. Objective : Data - Labs CBC and BMP: 10/01/16 06:13 10/02/16 06:08 Labs - Last 24 Hours: Laboratory Results 10/02/16 Range/Units 06:08 Sodium 137 (135-145) meq/L Potassium 3.6 L (3.8-5.2) meq/L Chloride 106 (98-112) meq/L Carbon Dioxide 23 (23-33) meq/L Anion Gap 8 (5-20) BUN 24 H (7-22) mg/dL Creatinine 1.3 H (0.50-1.20) mg/dL Estimated GFR Service Order Taker BUN/Creatinine Ratio 18.46 (6-20) Glucose 77 L (78-110) mg/dL Calculated Osmolality 286.0 (267-292) mOsm/kg Calcium 9.3 (8.7-10.7) mg/dL Total Bilirubin 0.7 (0.3-1.2) mg/dL AST 26 (8-39) IU/L ALT 21 (9-52) IU/L Alkaline Phosphatase 60 (38-126) IU/L Total Protein 5.5 L (6.1-8.0) g/dL Albumin 3.3 L (3.5-4.8) g/dL Globulin 2.2 L (2.50-4.10) g/dL Albumin/Globulin Ratio 1.50 (1.3-2.0) mg/g Objective : Exam - General General Appearance: No Acute Distress, Cooperative Additional General Exam Details: Vital Signs - Last Taken Temperature 98 F 10/02/16 12:50 Pulse Rate 74 10/02/16 12:50 Respiratory Rate 18 10/02/16 12:50 Blood Pressure 172/85 10/02/16 12:50 Pulse Ox 94 10/02/16 12:50 - Head Head Exam: Normal Inspection, Normocephalic, Atraumatic - Eye Eye Exam: No Scleral Icterus - Respiratory Respiratory Exam: Clear to Auscultation - Bilaterally, Breathing Non Labored - Cardiovascular Cardiovascular Exam: RRR, No Murmur, No Clicks, No Gallops, No Rubs, No JVD - GI/Abdominal GI/Abdominal Exam: Normal Bowel Sounds, Non Tender, Non Distended, Soft - Extremities Extremities Exam: No Clubbing Present, No Edema Present, No Cyanosis Present - Neurological Neurological Exam: Alert, Oriented x 3, No Facial Droop, Speech Intact / Clear, Moves All Extremities Equally Additional Neurological Exam Details: Has moderate dementia, but oriented to person, place, and situation. - Psychiatric Psychiatric Exam: Anxious Assessment and Plan - Patient Problems (1) Hypertension Current Visit: Yes Status: Acute Qualifiers: Hypertension type: essential hypertension Qualified Description: Essential hypertension Qualifier Code(s): (I10) Essential (primary) hypertension (2) Chronic kidney disease Current Visit: Yes Status: Acute Qualifiers: Chronic kidney disease stage: stage 3 (moderate) Qualified Description : Chronic kidney disease, stage 3 (moderate) Qualifier Code(s): (N18.3) Chronic kidney disease, stage 3 (moderate) (3) Cholelithiasis Current Visit: Yes Status: Acute Qualifiers: Cholelithiasis location: gallbladder Cholecystitis presence: with cholecystitis Cholecystitis acuity: acute Biliary obstruction: without biliary obstruction Qualified Description: Calculus of gallbladder with acute cholecystitis without obstruction Qualifier Code(s): (K80.00) Calculus of gallbladder with acute cholecystitis without obstruction (4) Anxiety disorder Current Visit: Yes Status: Acute Qualifiers: Anxiety disorder type: generalized anxiety disorder Qualified Description: Generalized anxiety disorder Qualifier Code(s): (F41.1) Generalized anxiety disorder (5) Dementia Current Visit: Yes Status: Acute Qualifiers: Dementia type: Alzheimer's disease Alzheimer's disease onset: late- onset Dementia behavioral disturbance: without behavioral disturbance Qualified Description: Late onset 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 (6) Cholecystitis Current Visit: Yes Status: Chronic - Assessment / Plan Additional Assessment/Plan Details: A full diet at this point, hold off on any IV fluids. Creatinine at 1.3, probably baseline. May need to consider swing bed until we can get a placement as patient has no home to go to. Try to establish power of securities attorney. Hold off on any benzodiazepines. I think they could paradoxically react in this patient as she clearly has dementia.
--- NOTE | 2016-10-02 17:24 | PT.PROG ---
Progress Note Progress Note: S. Patient stated that she is kind of tired this afternoon however she would go to therapy. O. Patient ambulated 175 feet to the therapy gym where she used the bicycle x 3 minutes, nu-step x 5 minutes, seated exercises in the form of; heel toe raises, marches, long arc quads, resisted knee flexion all x 10 with yellow band. Patient ambulated 175 feet back to her room where she was left in chair with alarm and call light. A. Patient tolerated exercise fair, she became light headed and slightly nauseous after performing exercises and did not want to do more, She recovered with a seated rest break. She required SBG assist during ambulation to correct her balance. Patient would continue to benefit from skilled therapy to increase strength, mobility and endurance. P. Continue POC.
[2016-10-02] MEDS ORDERED: DOCUSATE 100 MG CAPSULE PO ONE (17:38)
[2016-10-02] MEDS ORDERED: DOCUSATE 100 MG CAPSULE PO PRN (17:38)
[2016-10-02] MEDS: METOPROLOL SUCCINATE 25 MG SR 24H TABLET PO SCH (20:08)
[2016-10-03] MEDS ORDERED: CloNIDine Tab 0.1 MG TABLET PO ONE (01:46)
[2016-10-03] MEDS: PANTOPRAZOLE 40 MG TABLET PO SCH (08:43)
[2016-10-03] MEDS: ESCITALOPRAM 10 MG TABLET PO SCH (10:50)
--- NOTE | 2016-10-03 13:43 | PDOC(PROG) ---
Date and Time of Service: 10/03/2016, 1340 Interval History: No chest pain. No shortness breath. Had an episode of some epigastric/lower substernal chest pain that resolved last night. Her blood pressure was elevated and clonidine was given. No nausea or vomiting and has no interest in gallbladder surgery. Still working on placement but it looks like we might have been in with an assisted living or care facility in [place]. Objective : Data - Labs CBC and BMP: 10/01/16 06:13 10/02/16 06:08 Labs - Last 24 Hours: Laboratory Results 09/29/16 09/30/16 10/01/16 Range/Units 23:15 08:20 06:13 WBC 8.19 6.19 5.51 (4.8-10.8) 10^3/uL RBC 4.43 3.80 L 3.42 L (4.20-5.40) 10^6/uL Hgb 13.1 11.2 L 10.0 L (12.0-16.0) g/dL Hct 38.3 33.2 L 30.3 L (37.0-47.0) % MCV 86.5 87.4 88.6 (81-99) FL MCH 29.6 29.5 29.2 (27-31) PG MCHC 34.2 33.7 33.0 (33-37) g/dL RDW Std Deviation 41.3 40.8 41.4 (39-50) fL RDW Coeff of Catina 13.3 13.2 13.3 (11.5-14.5) % Plt Count 315 266 228 (140-350) 10*3/uL MPV 8.7 8.4 8.3 (7.4-12.2) FL Immature Gran % (Auto) 0.1 0 0.2 (0-5) % Neut % (Auto) 50.5 77.9 60.0 (50-80) % Lymph % (Auto) 36.9 15.0 27.0 (10-50) % [place] % (Auto) 10.3 6.6 9.3 (5-15) % Eos % (Auto) 1.8 0.3 3.1 (0-8) % Baso % (Auto) 0.4 0.2 0.4 (0-1) % Immature Gran # (Auto) 0.01 0 0.01 10*3/UL Neut # (Auto) 4.14 4.82 3.31 10*3/UL Lymph # (Auto) 3.02 0.93 1.49 10*3/uL [place] # (Auto) 0.84 H 0.41 0.51 (0.3-0.8) 10*3/UL Eos # (Auto) 0.15 0.02 0.17 10*3/UL Baso # (Auto) 0.03 0.01 0.02 10*3/UL WBC Morphology Comment Normal morphology Normal morphology Normal morphology (NORM) Plt Morphology Comment Normal morphology Normal morphology Normal morphology (NORM) RBC Morph Comment Normal morphology Normal morphology Normal morphology ( NORM) D-Dimer 0.97 H (0.00-0.59) mg/L Sodium 139 140 140 (135-145) meq/L Potassium 4.0 3.7 L 3.7 L (3.8-5.2) meq/L Chloride 102 106 110 (98-112) meq/L Carbon Dioxide 23 22 L 21 L (23-33) meq/L Anion Gap 14 12 9 (5-20) BUN 33 H 25 H 21 (7-22) mg/dL Creatinine 1.6 H 1.2 1.2 (0.50-1.20) mg/dL Estimated GFR Senior Research Fellow BUN/Creatinine Ratio 20.62 H 20.83 H 17.50 (6-20) Glucose 107 113 H 72 L (78-110) mg/dL Calculated Osmolality 294.0 H 294.0 H 291.0 (267-292) mOsm/kg Calcium 10.1 8.8 8.8 (8.7-10.7) mg/dL Magnesium 1.7 (1.6-2.4) mg/dL Total Bilirubin 0.6 0.7 0.8 (0.3-1.2) mg/dL AST 24 20 19 (8-39) IU/L ALT 23 24 20 (9-52) IU/L Alkaline Phosphatase 107 77 62 (38-126) IU/L Troponin I < 0.012 (< 0.040) ng/mL C-Reactive Protein 0.9 (0.0-0.9) mg/dL Total Protein 7.1 6.2 5.3 L (6.1-8.0) g/dL Albumin 4.6 3.7 3.1 L (3.5-4.8) g/dL Globulin 2.5 2.4 L 2.2 L (2.50-4.10) g/dL Albumin/Globulin Ratio 1.80 1.50 1.40 (1.3-2.0) mg/g Amylase 68 (30-110) U/L Lipase 259 81 (23-300) IU/L Vitamin D 25-Hydroxy 29.1 L (30-100) NG/ML 10/02/16 Range/Units 06:08 WBC (4.8-10.8) 10^3/uL RBC (4.20-5.40) 10^6/uL Hgb (12.0-16.0) g/dL Hct (37.0-47.0) % MCV (81-99) FL MCH (27-31) PG MCHC (33-37) g/dL RDW Std Deviation (39-50) fL RDW Coeff of Catina (11.5-14.5) % Plt Count (140-350) 10*3/uL MPV (7.4-12.2) FL Immature Gran % (Auto) (0-5) % Neut % (Auto) (50-80) % Lymph % (Auto) (10-50) % [place] % (Auto) (5-15) % Eos % (Auto) (0-8) % Baso % (Auto) (0-1) % Immature Gran # (Auto) 10*3/UL Neut # (Auto) 10*3/UL Lymph # (Auto) 10*3/uL [place] # (Auto) (0.3-0.8) 10*3/UL Eos # (Auto) 10*3/UL Baso # (Auto) 10*3/UL WBC Morphology Comment (NORM) Plt Morphology Comment (NORM) RBC Morph Comment (NORM) D-Dimer (0.00-0.59) mg/L Sodium 137 (135-145) meq/L Potassium 3.6 L (3.8-5.2) meq/L Chloride 106 (98-112) meq/L Carbon Dioxide 23 (23-33) meq/L Anion Gap 8 (5-20) BUN 24 H (7-22) mg/dL Creatinine 1.3 H (0.50-1.20) mg/dL Estimated GFR Senior Research Fellow BUN/Creatinine Ratio 18.46 (6-20) Glucose 77 L (78-110) mg/dL Calculated Osmolality 286.0 (267-292) mOsm/kg Calcium 9.3 (8.7-10.7) mg/dL Magnesium (1.6-2.4) mg/dL Total Bilirubin 0.7 (0.3-1.2) mg/dL AST 26 (8-39) IU/L ALT 21 (9-52) IU/L Alkaline Phosphatase 60 (38-126) IU/L Troponin I (< 0.040) ng/mL C-Reactive Protein (0.0-0.9) mg/dL Total Protein 5.5 L (6.1-8.0) g/dL Albumin 3.3 L (3.5-4.8) g/dL Globulin 2.2 L (2.50-4.10) g/dL Albumin/Globulin Ratio 1.50 (1.3-2.0) mg/g Amylase (30-110) U/L Lipase (23-300) IU/L Vitamin D 25-Hydroxy (30-100) NG/ML Objective : Exam - General General Appearance: No Acute Distress, Cooperative Additional General Exam Details: Vital Signs - Last Taken Temperature 98.4 F 10/03/16 08:41 Pulse Rate 67 10/03/16 08:41 Respiratory Rate 18 10/03/16 04:55 Blood Pressure 141/71 10/03/16 08:41 Pulse Ox 94 10/03/16 08:41 - Head Head Exam: Normal Inspection, Normocephalic, Atraumatic - Eye Eye Exam: No Scleral Icterus - Respiratory Respiratory Exam: Clear to Auscultation - Bilaterally, Breathing Non Labored - Cardiovascular Cardiovascular Exam: RRR, No Murmur, No Clicks, No Gallops, No Rubs, No JVD Additional Cardiovascular Details: I could not reproduce chest pain with palpation. She has no chest pain actively at this time. - GI/Abdominal GI/Abdominal Exam: Normal Bowel Sounds, Non Tender, Non Distended, Soft - Neurological Neurological Exam: Alert, Oriented x 3, No Facial Droop, Speech Intact / Clear, Moves All Extremities Equally Assessment and Plan - Patient Problems (1) Hypertension Current Visit: Yes Status: Acute Qualifiers: Hypertension type: essential hypertension Qualified Description: Essential hypertension Qualifier Code(s): (I10) Essential (primary) hypertension (2) Chronic kidney disease Current Visit: Yes Status: Acute Qualifiers: Chronic kidney disease stage: stage 3 (moderate) Qualified Description : Chronic kidney disease, stage 3 (moderate) Qualifier Code(s): (N18.3) Chronic kidney disease, stage 3 (moderate) (3) Cholelithiasis Current Visit: Yes Status: Acute Qualifiers: Cholelithiasis location: gallbladder Cholecystitis presence: with cholecystitis Cholecystitis acuity: acute Biliary obstruction: without biliary obstruction Qualified Description: Calculus of gallbladder with acute cholecystitis without obstruction Qualifier Code(s): (K80.00) Calculus of gallbladder with acute cholecystitis without obstruction (4) Anxiety disorder Current Visit: Yes Status: Acute Qualifiers: Anxiety disorder type: generalized anxiety disorder Qualified Description: Generalized anxiety disorder Qualifier Code(s): (F41.1) Generalized anxiety disorder (5) Dementia Current Visit: Yes Status: Acute Qualifiers: Dementia type: Alzheimer's disease Alzheimer's disease onset: late- onset Dementia behavioral disturbance: without behavioral disturbance Qualified Description: Late onset 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 (6) Cholecystitis Current Visit: Yes Status: Chronic - Assessment / Plan Additional Assessment/Plan Details: For the blood pressure, I'll adjust medications to try and get a little bit better control the blood pressure. I think this is all referred pain probably from chronic cholecystitis, probable biliary dyskinesia, but the patient does not want surgery. Unless it becomes acute cystitis or some other indication for acute therapy, and we will hold off for now. Placement as possible. The patient's dementia is too advanced to allow her to live alone on her own.
--- NOTE | 2016-10-03 14:40 | OTI REPORT ---
Thank you for the referral of Shantel Fabian. She was seen on 09/30/16 for an occupational therapy inpatient evaluation secondary to cognitive concerns and stomach pain. SUBJECTIVE: The patient is an 81-year-old female who is being seen today secondary to having increased cognitive concerns from staff as well as her family. She did come in secondary to stomach pain. She is supposed to have gall bladder surgery in the morning. Prior to admission the patient was living with her daughter and son-in-law for the last month. Prior to this she was living in [place] with family members for approximately five months. According to the patient, it sounds like she goes from family to family. According to her son-in -law, she does have a lot of anxiety and they have noticed a cognitive decline. They are hoping to possibly get her into assisted living at some point. He reports that having the patient live with them is not going so well at this point in time. Prior to admission the patient reports that she was able to dress herself. She states she is able to shower herself and get around the house without any difficulty. She states her only outing is to go to the grocery store. She states she does not drive. She does report that she does have higher anxiety and that she really would like to take her dog with her if she does move. PAST MEDICAL HISTORY: Past medical history can be found in the patient's medical record. OBJECTIVE FINDINGS: Bed mobility: The patient was able to come from supine to sit independently. Range of motion: While sitting edge of bed the patient had within functional limits for active range of motion of her shoulders in all planes. Strength: The patient demonstrated 3/5 for shoulder flexion, 3+/5 for shoulder abduction, 4/5 for elbow flexion/extension, and 4/5 for wrist flexion/extension. Pain: The patient reports that her stomach pain was quite intense yesterday. She reports her stomach pain today is a 5/10 on the verbal analog scale (0=no pain, 10=worst pain). Transfers: The patient was able to complete a functional transfer from the bed to the chair with stand by assistance. ASSESSMENT: At this time the patient is demonstrating some cognitive difficulties. We will continue with the MOCA tomorrow morning or after her surgery. The patient is doing pretty well with her range of motion and functional transfers. She is having difficulty with cognition, abstract thought, and memory. At this point the family does not want to take her back home. We may be looking at another placement based on her cognitive testing and discussion with family and the patient at some point in time. Short-Term Goals: To be met by discharge from inpatient: Patient will continue with the MOCA and possibly complete the CPT within the next day or two. Patient will be alert and oriented x4. Patient will be able to recall three out of five items after a 5 minute time span to improve her short term memory. Patient will be able to complete a whole morning routine which would include donning clothes, obtaining clothes from closet, and completing all toileting and hygiene activities independently. Patient will be able to shower self independently without loss of balance. Long-Term Goals: To be met following discharge from inpatient: Patient will be discharged to an apartment and or assisted living based on her cognitive assessment, being safe and independent with simple ADLs and functional tasks 100% of the time. TREATMENT PLAN: Patient will be seen B.I.D during the week and one time per day over the weekend as an inpatient to address the above goals and objectives. INITIAL TREATMENT: Treatment today consisted of the initial evaluation followed by the patient completing the [place] Cognitive Assessment (MOCA). We were only able to complete 75% of the MOCA secondary to the patient not having her glasses. Her family reports that they will bring her glasses tomorrow. The patient had difficulty with the shot term memory part of the assessment. She thought the year was 1972. She had difficulty with abstract thought. She was able to repeat sentences and repeat digits forward. She had difficulty repeating digits backward. We will score this completely in the next session with her after she gets her glasses. IAM
--- NOTE | 2016-10-03 14:45 | OT AM DAY ---
Diagnosis : Cognitive Concerns/Stomach Pain AM - Occupational Therapy S: Staff was wanting the cognitive assessment done as soon as possible as the patient doesn't necessarily want the surgery. Her nurse states that she did verbalize that she knows that she could be in intense pain if she does not have the surgery but she doesn't really want to go through the surgery this morning as she does not have a lot of pain. O: Today we finished the MOCA. The patient had difficulty with executive function and had difficulty with drawing the correct time on a clock. Overall after the entire test was scored she scored 14/30 which puts her in the MODERATE cognitive impairment range. This was discussed with family as well as staff. At this point it is highly recommended that we continue this afternoon with a cognitive performance test as we do need to look further into her cognitive processing abilities and how she is able to make decisions for herself and understand what is going on. A: The patient is demonstrating cognitive processing difficulties. We will further assess with the CPT. P: Continue seeing patient BID during the week and one time per day over the weekend until discharge. IAM
--- NOTE | 2016-10-03 15:04 | OT.PROG ---
Progress Note Progress Note: S-Pt. stated she was feeling good and does not want any type of surgeries at this time. O- Pt. completed ADLs with SBA. She was able to independently wash hair and body in the shower with no instability. Pt. stood at counter to complete counter top ADL to include brushing dentures, brushing hair and putting on lotion. Pt tolerated 30 min of standing with no complaints of pain or loss of balance. Pt. did have difficulties with recalling events and required prompting for safety during reaching activities. A- Pt. was able to complete ADL activities with minimal assist but would continue to benefit from skilled OT services for SBA for safety secondary to current cognition and memory as well as core strengthening activities for mobility in reaching. P-Continue POC.
--- NOTE | 2016-10-03 15:16 | OT.PROG ---
Progress Note Progress Note: S- Pt stated she was ready to move to [place] in the SNF and she had accepted that it was the best option for her at this time. O- Pt walked 150ft today with SBA, she demod increased stability. Pt completed several FM activities to increase hand strength and improve over all independence. Pt continues to be forgetful and has difficulties with concentrating on specific tasks. A- Pt would benefit from continuation of skilled OT services to address memory and sequencing deficits to increase pt safety. P- Continue POC
--- NOTE | 2016-10-03 15:33 | OT PM DAY ---
Diagnosis : Cognitive Concerns/Stomach Pain PM - Occupational Therapy S: The patient reports she wants to live on her own in an apartment. O: Today we assessed the patient with the Cognitive Performance Test as there are concerns about the patient living on her own. Medication: The patient scored 4.5 out of 6.0. She was able to follow the first level of medications. With the next three levels of medications she needed verbal cues in order to follow the correct directions. Shopping: The patient scored 5.0 out of 6.0. The patient was able to make correct change. She looked in the wallet and located all the money with verbal cues. She was able to exchange for the cheaper pair of gloves. Washing: The patient scored 4.5 out of 5.0. She needed additional verbal cues to get to the sink. [place]: The patient was able to recognize that the toaster needed plugged in and she completed the task as directed. Phone: The patient scored 4.0 out of 6.0. The patient was not able to look up numbers in the phone book. She was not able to alphabetize very well. She needed the number given to her. Overall the patient scored 4.6. This indicates that the patient may live with daily monitoring. This is more along an assisted living type facility where the patient can get help with her medications. This states the patient may purchase items with familiar methods. She is in the somewhat rote learning area. She may anticipate impulsive behavior and redirect as possible. She will need monitoring for her health, self care, and household management tasks for effectiveness, safety, and hygienic reasons. She will need monitored for her dietary and medication compliance and outcomes. At this level they are encouraged to get medical supervision of dosage changes, assistance needed with dispensing variable doses, and refilling prescriptions. Also, she will need monitoring with her higher level financial affairs to conserve assets, and assistance needed with budgets and account management. The patient will need accompanied to new destinations as needed. A: At this time this was discussed with the family, the urban planner, and her nurse. The patient is more appropriate for an assisted living type facility at this point in time. Her family is not necessarily wanting the patient to go home as it is not a good situation between the family members. We will assist in trying to get the patient to an assisted living facility if possible. P: Continue seeing patient BID during the week and one time per day over the weekend until discharge. MTDD
--- NOTE | 2016-10-03 16:35 | PT.PROG ---
Progress Note Progress Note: S: Pt reports that she is doing fine, coping with the fact that she will be moving to [place] to a care center there. Denies c/o pain. O: Treatment consisted of: ambulation 250'x2 with S and one seated rest break, tandem walk 20' while holding 5# to challenge ISA, seated marches 20x0#, LAQ 20x each LE, seated hip abduction 20x each LE, STS 5x, Pt was left in her chair , NAD, call button within reach, family in room. A: Pt tolerated treatment well, was easily distracted as daughter brought pt's dog in during treatment session. P: Continue to treat per POC.
[2016-10-03] MEDS ORDERED: Ondansetron ODT Tab 4 MG TAB PO PRN (18:41)
[2016-10-03] MEDS: CloNIDine Tab 0.1 MG TABLET PO PRN (21:00)
[2016-10-03] MEDS: METOPROLOL SUCCINATE 25 MG SR 24H TABLET PO SCH (21:00)
[2016-10-04] MEDS: LISINOPRIL 10 MG TABLET PO SCH (08:18)
[2016-10-04] MEDS: ESCITALOPRAM 10 MG TABLET PO SCH (08:18)
[2016-10-04] MEDS: CloNIDine Tab 0.1 MG TABLET PO PRN (08:19)
[2016-10-04] MEDS: PANTOPRAZOLE 40 MG TABLET PO SCH (08:19)
--- NOTE | 2016-10-04 09:58 | PDOC(PROG) ---
Date and Time of Service: 10/04/2016 9:56 AM Interval History: Subjective Patient is denying symptoms she just came back from physical therapy. She is denying abdominal pain no chest pain. No nausea or vomiting. She said she came into the hospital because she had severe abdominal cramps and that's resolved doesn't have any since then. She knows the plan is for her to go to the long-term on Thursday. Objective : Data - Labs CBC and BMP: 10/01/16 06:13 10/02/16 06:08 Objective : Exam - General General Appearance: No Acute Distress, Cooperative - Head Head Exam: Normal Inspection - Eye Eye Exam: Normal Appearance - ENT ENT Exam: Normal Exam - Neck Neck Exam: Normal Inspection - Respiratory Respiratory Exam: Clear to Auscultation - Bilaterally - Cardiovascular Cardiovascular Exam: RRR - GI/Abdominal GI/Abdominal Exam: Normal Bowel Sounds, Non Tender, Non Distended, Soft - Rectal Rectal Exam: Deferred - External Exam: Deferred - Extremities Extremities Exam: Normal Inspection - Back Back Exam: Normal Inspection - Neurological Neurological Exam: Alert, Oriented x 3, CN II-XII Intact - Psychiatric Psychiatric Exam: Normal Affect Assessment and Plan - Patient Problems (1) Cholelithiasis with chronic cholecystitis without biliary obstruction Current Visit: Yes Status: Acute Priority: High Diagnosis Date: 09/29/16 Comment: Surgery was canceled the plan is to watch for recurrence of symptoms. The reason is she declined surgery (2) Hypertension Current Visit: Yes Status: Acute Comment: Same medications Qualifiers: Hypertension type: essential hypertension Qualified Description: Essential hypertension Qualifier Code(s): (I10) Essential (primary) hypertension (3) Dementia Current Visit: Yes Status: Acute Comment: Plan to go to a long-term on Thursday. Qualifiers: Dementia type: Alzheimer's disease Alzheimer's disease onset: late- onset Dementia behavioral disturbance: without behavioral disturbance Qualified Description: Late onset 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
[2016-10-04] MEDS: METOPROLOL SUCCINATE 25 MG SR 24H TABLET PO SCH (20:23)
[2016-10-05] MEDS: PANTOPRAZOLE 40 MG TABLET PO SCH (09:42)
--- NOTE | 2016-10-05 09:42 | PDOC(PROG) ---
Date and Time of Service: 10/05/2016 9:40 AM Interval History: Subjective Patient said that she had bowel movement this morning and she is somewhat tired but she is denying abdominal pain Objective : Data - Labs CBC and BMP: 10/01/16 06:13 10/02/16 06:08 Objective : Exam - General General Appearance: No Acute Distress, Cooperative - Head Head Exam: Normal Inspection - Eye Eye Exam: Normal Appearance - ENT ENT Exam: Normal Exam - Neck Neck Exam: Normal Inspection - Respiratory Respiratory Exam: Clear to Auscultation - Bilaterally - Cardiovascular Cardiovascular Exam: RRR - GI/Abdominal GI/Abdominal Exam: Normal Bowel Sounds, Non Tender, Non Distended, Soft - Rectal Rectal Exam: Deferred - External Exam: Deferred - Extremities Extremities Exam: Normal Inspection - Back Back Exam: Normal Inspection - Neurological Neurological Exam: Alert, CN II-XII Intact, Speech Intact / Clear - Psychiatric Psychiatric Exam: Normal Affect Assessment and Plan - Patient Problems (1) Cholelithiasis with chronic cholecystitis without biliary obstruction Current Visit: Yes Status: Acute Priority: High Diagnosis Date: 09/29/16 Comment: She refused surgery and the plan to observe. She'll be discharged tomorrow to go to a [facility]. (2) Hypertension Current Visit: Yes Status: Acute Comment: Blood pressure is higher today will contain same medication and will watch. Qualifiers: Hypertension type: essential hypertension Qualified Description: Essential hypertension Qualifier Code(s): (I10) Essential (primary) hypertension (3) Dementia Current Visit: Yes Status: Acute Comment: She need placement and she will be discharged tomorrow to [facility] Qualifiers: Dementia type: Alzheimer's disease Alzheimer's disease onset: late- onset Dementia behavioral disturbance: without behavioral disturbance Qualified Description: Late onset 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
[2016-10-05] MEDS: LISINOPRIL 10 MG TABLET PO SCH (09:43)
[2016-10-05] MEDS: ESCITALOPRAM 10 MG TABLET PO SCH (09:43)
--- NOTE | 2016-10-05 10:52 | PT.PROG ---
Progress Note Progress Note: S: Pt is doing well today and just finished her breakfast. Willing to participate in PT. O: Treatment consisted of: standing balance at sink to perform daily hygiene activities for 5 minutes without rest break. Ambulation x 150 feet with SBA x 1 for safety to therapy room. Instruction in ther ex consisting of: nustep x 10 min, 2# weighted alternating LAQ's, marching, resisted hamstring curls, resisted hip abduction, 10x sit to stand transfers, all wall pulleys with 1 kg ( performed standing), ambulation from therapy to room x 150 feet with SBA x 1. Pt was left in chair with call light within reach. Pt was given theraputty to work on while in her room. A: Shantel tolerated treatment well. Stated that she was fatigued at end of exercises. P: Continue per POC.
--- NOTE | 2016-10-05 11:30 | PT.PROG ---
Progress Note Progress Note: Pt refused to participate in therapy as she states that she was up all night with a stomach ache. Pt states that she is feeling slightly better but after her shower and getting dressed, she has no energy to participate in therapy. Discussed with patient the benefits of participating in therapy but once again she refused.
[2016-10-05] MEDS: METOPROLOL SUCCINATE 25 MG SR 24H TABLET PO SCH (20:19)
[2016-10-06 06:58] VITALS: RESP 18
[2016-10-06] MEDS: PANTOPRAZOLE 40 MG TABLET PO SCH (07:35)
[2016-10-06] MEDS: LISINOPRIL 10 MG TABLET PO SCH (08:48)
[2016-10-06] MEDS: ESCITALOPRAM 10 MG TABLET PO SCH (08:48)
--- NOTE | 2016-10-06 09:04 | PTI REPORT ---
Thank you for the referral of Shantel Fabian. She was seen on 10/02/16 for an inpatient evaluation secondary to cognitive concerns. SUBJECTIVE: The patient is an 81-year-old female. The patient reports she is not in any pain. She is occasionally confused and just wants to go home and find somewhere to live. PAST MEDICAL HISTORY: Past medical history can be found in the patient's medical record. OBJECTIVE FINDINGS: Strength: Manual muscle testing revealed 4/5 bilateral lower extremity strength throughout. Range of motion: Range of motion was within functional limits in bilateral lower extremities. Transfers: The patient was able to complete sit to stand transfer with min assist. Ambulation: The patient is able to ambulate 250 feet with contact guard assist. Balance: The patient demonstrates good sitting static and dynamic balance and fair plus static and dynamic standing balance. ASSESSMENT: The patient has general lower extremity weakness and would benefit from continued skilled care for increased strength and balance for independence with transfers and safety with ambulation. Short-Term Goals: To be met by discharge from inpatient: Patient will be able to demonstrate 4+/5 bilateral lower extremity strength for carry over with transfers and safety during gait. Patient will require only supervision for sit to stand transfers. Patient will demonstrate good static standing balance. Long-Term Goals: To be met following discharge from inpatient: Patient will be able to complete all transfers with supervision. Patient will be able to demonstrate good dynamic standing balance. Patient will be able to ambulate 300 feet with supervision for independent community ambulation. TREATMENT PLAN: Patient will be seen B.I.D during the week and one time per day over the weekend as an inpatient to address the above goals and objectives. INITIAL TREATMENT: Treatment today consisted of the initial evaluation followed by manual resisted muscle testing, range of motion activities, ambulation, and transfer activities. IAM
--- NOTE | 2016-10-06 09:13 | DCSUMMARY ---
Hospitalization Summary Admit Date: 09/30/16 Discharge Date: 10/06/16 Hospital Course: Discharge diagnoses 1. Cholelithiasis with probable chronic cholecystitis 2. Hypertension 3. Mild cognitive impairment versus dementia 4. Depression/anxiety 5. Thickening of the distal esophagus, need F/U as an outpatient Hospital course This is an 81 years old the female with medical history significant for history of hypertension and mild cognitive impairment versus dementia who came into the hospital because of abdominal pain the pain started on the day of admission she described as quite intense, there was no nausea or vomiting and apparently it was going on intermittently for a week or so. A CT of the abdomen and pelvis showed gallstones and possible gallbladder thickening, there is some thickening of the distal wall of the esophagus this could be pseudo thickening or hiatal hernia, however inflammatory or neoplastic process can give similar appearance. She was admitted to the hospital by Dr. Adkins please see his note. Ultrasound of the abdomen did show gallstone with the probable chronic cholecystitis. She was seen by the surgeon and there was a plan for her to have surgery however she changed her mind and decided against it. Because of her cognitive impairment it was decided as was best for her to be at [facility], she was accepted at [facility]. I saw her later on during her hospital stay she did not have more abdominal pain and once the bed was available we discharged her to follow-up with her physician there. Patient did have uncontrolled blood pressure and lisinopril was added to her usual medication. Regrading the esophageal finding on CT she was put on protonix and will need F/U later as an outpatient. Laboratory Results 09/29/16 09/30/16 10/01/16 Range/Units 23:15 08:20 06:13 WBC 8.19 6.19 5.51 (4.8-10.8) 10^3/uL RBC 4.43 3.80 L 3.42 L (4.20-5.40) 10^6/uL Hgb 13.1 11.2 L 10.0 L (12.0-16.0) g/dL Hct 38.3 33.2 L 30.3 L (37.0-47.0) % MCV 86.5 87.4 88.6 (81-99) FL MCH 29.6 29.5 29.2 (27-31) PG MCHC 34.2 33.7 33.0 (33-37) g/dL RDW Std Deviation 41.3 40.8 41.4 (39-50) fL RDW Coeff of Catina 13.3 13.2 13.3 (11.5-14.5) % Plt Count 315 266 228 (140-350) 10*3/uL MPV 8.7 8.4 8.3 (7.4-12.2) FL Immature Gran % (Auto) 0.1 0 0.2 (0-5) % Neut % (Auto) 50.5 77.9 60.0 (50-80) % Lymph % (Auto) 36.9 15.0 27.0 (10-50) % [place] % (Auto) 10.3 6.6 9.3 (5-15) % Eos % (Auto) 1.8 0.3 3.1 (0-8) % Baso % (Auto) 0.4 0.2 0.4 (0-1) % Immature Gran # (Auto) 0.01 0 0.01 10*3/UL Neut # (Auto) 4.14 4.82 3.31 10*3/UL Lymph # (Auto) 3.02 0.93 1.49 10*3/uL Galax # (Auto) 0.84 H 0.41 0.51 (0.3-0.8) 10*3/UL Eos # (Auto) 0.15 0.02 0.17 10*3/UL Baso # (Auto) 0.03 0.01 0.02 10*3/UL WBC Morphology Comment Normal morphology Normal morphology Normal morphology (NORM) Plt Morphology Comment Normal morphology Normal morphology Normal morphology (NORM) RBC Morph Comment Normal morphology Normal morphology Normal morphology ( NORM) D-Dimer 0.97 H (0.00-0.59) mg/L Sodium 139 140 140 (135-145) meq/L Potassium 4.0 3.7 L 3.7 L (3.8-5.2) meq/L Chloride 102 106 110 (98-112) meq/L Carbon Dioxide 23 22 L 21 L (23-33) meq/L Anion Gap 14 12 9 (5-20) BUN 33 H 25 H 21 (7-22) mg/dL Creatinine 1.6 H 1.2 1.2 (0.50-1.20) mg/dL Estimated GFR Proof Inspector BUN/Creatinine Ratio 20.62 H 20.83 H 17.50 (6-20) Glucose 107 113 H 72 L (78-110) mg/dL Calculated Osmolality 294.0 H 294.0 H 291.0 (267-292) mOsm/kg Calcium 10.1 8.8 8.8 (8.7-10.7) mg/dL Magnesium 1.7 (1.6-2.4) mg/dL Total Bilirubin 0.6 0.7 0.8 (0.3-1.2) mg/dL AST 24 20 19 (8-39) IU/L ALT 23 24 20 (9-52) IU/L Alkaline Phosphatase 107 77 62 (38-126) IU/L Troponin I < 0.012 (< 0.040) ng/mL C-Reactive Protein 0.9 (0.0-0.9) mg/dL Total Protein 7.1 6.2 5.3 L (6.1-8.0) g/dL Albumin 4.6 3.7 3.1 L (3.5-4.8) g/dL Globulin 2.5 2.4 L 2.2 L (2.50-4.10) g/dL Albumin/Globulin Ratio 1.80 1.50 1.40 (1.3-2.0) mg/g Amylase 68 (30-110) U/L Lipase 259 81 (23-300) IU/L Vitamin D 25-Hydroxy 29.1 L (30-100) NG/ML 10/02/16 Range/Units 06:08 WBC (4.8-10.8) 10^3/uL RBC (4.20-5.40) 10^6/uL Hgb (12.0-16.0) g/dL Hct (37.0-47.0) % MCV (81-99) FL MCH (27-31) PG MCHC (33-37) g/dL RDW Std Deviation (39-50) fL RDW Coeff of Catina (11.5-14.5) % Plt Count (140-350) 10*3/uL MPV (7.4-12.2) FL Immature Gran % (Auto) (0-5) % Neut % (Auto) (50-80) % Lymph % (Auto) (10-50) % [place] % (Auto) (5-15) % Eos % (Auto) (0-8) % Baso % (Auto) (0-1) % Immature Gran # (Auto) 10*3/UL Neut # (Auto) 10*3/UL Lymph # (Auto) 10*3/uL [place] # (Auto) (0.3-0.8) 10*3/UL Eos # (Auto) 10*3/UL Baso # (Auto) 10*3/UL WBC Morphology Comment (NORM) Plt Morphology Comment (NORM) RBC Morph Comment (NORM) D-Dimer (0.00-0.59) mg/L Sodium 137 (135-145) meq/L Potassium 3.6 L (3.8-5.2) meq/L Chloride 106 (98-112) meq/L Carbon Dioxide 23 (23-33) meq/L Anion Gap 8 (5-20) BUN 24 H (7-22) mg/dL Creatinine 1.3 H (0.50-1.20) mg/dL Estimated GFR Proof Inspector BUN/Creatinine Ratio 18.46 (6-20) Glucose 77 L (78-110) mg/dL Calculated Osmolality 286.0 (267-292) mOsm/kg Calcium 9.3 (8.7-10.7) mg/dL Magnesium (1.6-2.4) mg/dL Total Bilirubin 0.7 (0.3-1.2) mg/dL AST 26 (8-39) IU/L ALT 21 (9-52) IU/L Alkaline Phosphatase 60 (38-126) IU/L Troponin I (< 0.040) ng/mL C-Reactive Protein (0.0-0.9) mg/dL Total Protein 5.5 L (6.1-8.0) g/dL Albumin 3.3 L (3.5-4.8) g/dL Globulin 2.2 L (2.50-4.10) g/dL Albumin/Globulin Ratio 1.50 (1.3-2.0) mg/g Amylase (30-110) U/L Lipase (23-300) IU/L Vitamin D 25-Hydroxy (30-100) NG/ML Discharge instruction Diet regular Activity as started Medications Home Medications Escitalopram Oxalate 0.5 tab-cap PO DAILY #30 tab-cap 09/17/16 [Clinic Confirmed 09/29/16] Hydralazine HCl 1 tab-cap PO BID #60 tab-cap 09/17/16 [Clinic Confirmed 09/29/16 ] Metoprolol Succinate 1 tab PO QHS #30 tab 09/17/16 [Clinic Confirmed 09/29/16] Lisinopril [Prinivil Tab] 10 mg PO DAILY tab 10/06/16 [Rx] Protonix 40 mg qday Follow-up with PCP in 1-2 weeks Condition at discharge was stable for discharge Exam - Vitals Vital Signs: Vital Signs Temperature 97 F Temperature Source Temporal Artery Scan Pulse Rate [Apical] 64 Pulse Rate [Pulse Oximeter] 62 Pulse Rate 66 Respiratory Rate 18 Blood Pressure [Left Arm] 154/78 Blood Pressure [Right Arm] 150/71 Blood Pressure 181/94 Pulse Ox 94 Oxygen Flow Rate 1 Oxygen Delivery Method Room Air Height 4 ft 11 in Weight 109 lb Patient Problems - Patient Problem List (1) Cholelithiasis with chronic cholecystitis without biliary obstruction Status: Acute Diagnosis Date: 09/29/16 Priority: High (2) Hypertension Status: Acute Qualifiers: Hypertension type: essential hypertension Qualified Description: Essential hypertension Qualifier Code(s): (I10) Essential (primary) hypertension (3) Dementia Status: Acute Qualifiers: Dementia type: Alzheimer's disease Alzheimer's disease onset: late- onset Dementia behavioral disturbance: without behavioral disturbance Qualified Description: Late onset 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
--- NOTE | 2016-10-06 09:34 | OT AM DAY ---
Diagnosis : Cognitive Concerns/Stomach Pain AM - Occupational Therapy S: The patient reported that it felt good to work. Her left arm is very weak. She states she does enjoy the exercise. O: Today the patient sat while she completed wall pulleys including 1.5 kilograms on the left side and 2 kilograms on the right side for shoulder extension, rows, biceps curls, internal/external rotation, and shoulder adduction. She then completed power web and digi-flex x1 minute each bilaterally followed by the upper body ergometer x4 minutes forward. A: The patient participated well. We will continue to work on her strength and activity tolerance. Discharge planning is still working on a possible discharge situation for the patient as going home with her family members. does not sound health or feasible at this time. P: Continue seeing patient BID during the week and one time per day over the weekend for transfers, ambulation, and range of motion/strengthening exercises. IAM
--- NOTE | 2016-10-06 10:02 | OT PM DAY ---
Diagnosis : Cognitive Concerns/Stomach Pain PM - Occupational Therapy S: The patient reports she is pretty exhausted this afternoon. Her family had come earlier and brought her dog to visit her outside of the hospital. O: The patient performed therapeutic exercises including upper body ergometer x3 minutes, red theraband resisted horizontal abduction, biceps curls , internal/external rotation, shoulder extension, and shoulder adduction, and power web bilaterally. A: The patient was pretty tired today. She felt a little nauseous after her full day of activity. P: Continue seeing patient BID during the week and one time per day over the weekend for upper extremity strengthening, ADLs, and overall functional mobility. IAM
[2016-10-06 11:43] VITALS: TEMP 97.2
--- NOTE | 2016-10-07 11:43 | PT AM DAY ---
Diagnosis : Cognitive Concerns AM - Physical Therapy S: The patient stated she would like to go for a walk. She had her daughter leave her dog with her for the morning and she wanted to take him outside. O: The patient ambulated 200 feet outside where she ambulated on uneven surfaces then had a short seated rest break. The patient then ambulated 200 feet back to her room where she was left in her chair with alarm and call light. A: The patient continues to tolerate ambulation and therapy well. The patient is going to [place] to assisted living this afternoon; therefore we didn't want to do too much exercise with her to make her too tired before her trip. The patient requires stand by assist with ambulation and transfers; however, she was able to ambulate the full distance without a rest break. The patient would benefit from a skilled facility. P: Patient will be discharged to [place] this afternoon. IAM
--- NOTE | 2016-10-07 11:56 | OT AM DAY ---
Diagnosis : Cognitive Concerns AM - Occupational Therapy S: The patient reports she will be going to the [facility] this afternoon. She is a little nervous but is willing to go. She knows that she probably will not be successful at any of her children's homes. O: Today the patient did very well with in-room mobility as well as taking a shower. The patient was able to doff clothes independently and shower self independently x10 minutes. She was able to dry herself and stand at sink x10 minutes to complete hygiene activities. She demonstrated good balance and even one legged stances when dressing lower extremities. She was able to obtain clothes and other items from the cupboards by reaching low and high. A: The patient demonstrated independence with all of the physical mobility that needed to be completed during showering, dressing, and in-room mobilization tasks. She did very well and demonstrated safety with functional transfers. P: Continue seeing patient BID during the week and one time per day over the weekend for upper extremity strengthening, ADLs, and overall functional mobility. IAM
== END 2016-10-06 12:07 | DRG 446 ==
LOC: ER 23:14 → MED/SURG 09-30 01:30
PROVIDERS: ADMIT Family Medicine; ATTEND Family Medicine
DX: K80.20 Calculus of gallbladder without cholecystitis without obstruction (principal); K80.10 Calculus of gallbladder with chronic cholecystitis without obstruction; I10 Essential (primary) hypertension; G31.84 Mild cognitive impairment of uncertain or unknown etiology; F03.90 Unspecified dementia, unspecified severity, without behavioral disturbance, psychotic disturbance, mood disturbance, and anxiety; F32.9 Major depressive disorder, single episode, unspecified
CPT/HCPCS: 36415; 74176; 76705; 80053; 82150; 82306; 83690; 83735; 84484; 85025; 85379; 86140; 93005; 93010; 94761; 97110; 97161; 97165; 97530; 97535; 99284; J1170; J2405; J3480; J3490; J7030